=== PATIENT | male | born 1950 | race Caucasian/White ===

== ENCOUNTER → 2020-03-24 19:02 | Outpatient (CLI) | payer MEDICARE, SELFPAY ==
[2020-03-24 20:48] LABS: Alanine Aminotransferase 25 U/L (12-78); Albumin Level 4.1 g/dl (3.5-5.0); Albumin/Globulin Ratio 1.4 (1.1-1.8); Alkaline Phosphatase 131 U/L (38-126); Aspartate Amino Transferase 28 U/L (17-59); Basophils # 0.1 K/mm3 (0-0.2); Basophils % 0.9 % (0.1-2.0); Bilirubin,Total 0.5 mg/dl (0.2-1.3); Blood Urea Nitrogen 14 mg/dl (9-20); Calcium 11.6 mg/dl (8.4-10.2); Carbon Dioxide 31 mmol/L (22.0-30.0); Chloride 100 mmol/L (98-107); Chol/HDL Ratio 5.1 (1-3.5); Cholesterol 195 mg/dl (140-200); Eosinophils # 0.3 K/mm3 (0.0-0.4); Eosinophils % 5.2 % (0.1-12.0); Estimated Glomerular Filt Rate 134 ml/min (>60); GFR (African American) 162 ML/MIN (>60); Globulin 2.9 g/dL (1.3-3.2); Glucose 114 mg/dl (74-100); HDL Cholesterol 38 mg/dl (40-60); Lymphocytes % 19.6 % (10-50); Mean Corpuscular HGB Conc 31.3 g/dL (31.8-35.4); Mean Corpuscular Hemoglobin 30.6 pg (27.0-31.2); Mean Corpuscular Volume 97.8 fl (80-94); Mean Platelet Volume 10.1 fl (7.4-10.4); Monocytes # 0.5 K/mm3 (0.1-1.0); Monocytes % 9.9 % (1.7-9.3); Neutrophils # 3.2 K/mm3 (1.8-7.8); Neutrophils % 64.3 % (37.0-80.0); Platelet Count 103 K/mm3 (142-424); Red Blood Count 6.56 M/mm3 (4.60-6.20); Red Cell Distribution Width 14.8 % (11.5-17.5); Sodium 139 mmol/L (136-145); Triglycerides 117 mg/dl (30-150); VLDL Cholesterol 23 mg/dL (0-40)
[2020-03-24 20:59] LABS: Direct LDL Cholesterol 136.62 mg/dL (100-129)
[2020-03-24 21:30] LABS: Hemoglobin A1C 7.2 % (4.0-6.0)
[2020-03-24 21:32] LABS: Hematocrit 64.1 % (42.0-52.0)
== END ==
PROVIDERS: Visit Provider Family Medicine
DX: E11.9 Type 2 diabetes mellitus without complications (principal); R80.9 Proteinuria, unspecified; Z79.84 Long term (current) use of oral hypoglycemic drugs
CPT/HCPCS: 80053; 80061; 83036; 85025

== ENCOUNTER → 2021-03-08 13:36 | Outpatient (CLI) | payer BC, MEDICARE, SELFPAY ==
[2021-03-08 14:23] LABS: Hemoglobin A1C 9.4 % (4.0-6.0)
== END ==
PROVIDERS: Visit Provider Family Medicine
DX: E11.9 Type 2 diabetes mellitus without complications (principal); Z79.84 Long term (current) use of oral hypoglycemic drugs
CPT/HCPCS: 83036

== ENCOUNTER → 2022-01-08 09:36 | Outpatient (CLI) | payer BC, SELFPAY | PROVIDERS: PCP Family Medicine; Visit Provider Family Medicine | DX: E11.9 Type 2 diabetes mellitus without complications (principal); Z79.4 Long term (current) use of insulin | CPT/HCPCS: 83036 ==

== ENCOUNTER → 2022-07-19 23:52 | Outpatient (CLI) | payer BC, SELFPAY ==
[2022-07-19 18:25] LABS: Basophils # 0.1 K/mm3 (0-0.2); Eosinophils # 0.2 K/mm3 (0.0-0.4); Eosinophils % 3.1 % (0.1-12.0); Hematocrit 45.7 % (42.0-52.0); Hemoglobin 14.7 g/dL (14.1-18.0); Lymphocytes # 1.1 K/mm3 (0.7-4.5); Lymphocytes % 13.9 % (10-50); Mean Corpuscular HGB Conc 32.2 g/dL (31.8-35.4); Mean Corpuscular Volume 93.3 fl (80-94); Mean Platelet Volume 9.5 fl (7.4-10.4); Monocytes # 0.6 K/mm3 (0.1-1.0); Monocytes % 7.5 % (1.7-9.3); Neutrophils # 5.7 K/mm3 (1.8-7.8); Neutrophils % 74.5 % (37.0-80.0); Platelet Count 201 K/mm3 (142-424); Red Blood Count 4.89 M/mm3 (4.60-6.20); Red Cell Distribution Width 15.2 % (11.5-17.5); White Blood Count 7.6 K/mm3 (4.8-10.8)
[2022-07-19 18:53] LABS: Alanine Aminotransferase 19 U/L (12-78); Albumin Level 4.1 g/dl (3.5-5.0); Albumin/Globulin Ratio 1.6 (1.1-1.8); Alkaline Phosphatase 103 U/L (38-126); Aspartate Amino Transferase 25 U/L (17-59); Bilirubin,Total 0.6 mg/dl (0.2-1.3); Blood Urea Nitrogen 18 mg/dl (9-20); Calcium 10.7 mg/dl (8.4-10.2); Carbon Dioxide 33 mmol/L (22.0-30.0); Chloride 103 mmol/L (98-107); Chol/HDL Ratio 3.9 (1-3.5); Cholesterol 163 mg/dl (140-200); Estimated Glomerular Filt Rate 111 ml/min (>60); GFR (African American) 135 ML/MIN (>60); Globulin 2.5 g/dL (1.3-3.2); Glucose 162 mg/dl (74-100); HDL Cholesterol 42 mg/dl (40-60); Sodium 135 mmol/L (136-145); Total Protein,Serum 6.6 g/dl (6.3-8.2); Triglycerides 164 mg/dl (30-150); VLDL Cholesterol 33 mg/dL (0-40)
[2022-07-19 19:04] LABS: Direct LDL Cholesterol 97.78 mg/dL (100-129)
[2022-07-19 19:09] LABS: 25-OH Vitamin D, Total 19.9 ng/mL (30-100)
[2022-07-19 20:18] LABS: Anion Gap 4.1 mEq/L (5-15); Potassium 5.1 mmoL/L (3.5-5.1)
[2022-07-19 20:19] LABS: Hemoglobin A1C 6.7 % (4.0-6.0)
== END ==
PROVIDERS: PCP Family Medicine; Visit Provider Family Medicine
DX: E11.9 Type 2 diabetes mellitus without complications (principal); E55.9 Vitamin D deficiency, unspecified; E09.9 Drug or chemical induced diabetes mellitus without complications; Z79.84 Long term (current) use of oral hypoglycemic drugs
CPT/HCPCS: 80053; 80061; 82306; 83036; 84443; 85025; G0103

== ENCOUNTER → 2022-10-06 23:14 | Outpatient (CLI) | payer OTHER, BC, SELFPAY ==
[2022-10-06 18:11] LABS: Basophils # 0.1 K/mm3 (0-0.2); Basophils % 0.6 % (0.1-2.0); Eosinophils # 0.3 K/mm3 (0.0-0.4); Eosinophils % 3.5 % (0.1-12.0); Hematocrit 46.8 % (42.0-52.0); Hemoglobin 14.5 g/dL (14.1-18.0); Lymphocytes % 12.6 % (10-50); Mean Corpuscular HGB Conc 30.9 g/dL (31.8-35.4); Mean Corpuscular Hemoglobin 30.6 pg (27.0-31.2); Mean Platelet Volume 9.5 fl (7.4-10.4); Monocytes # 0.6 K/mm3 (0.1-1.0); Monocytes % 7.7 % (1.7-9.3); Neutrophils # 6.1 K/mm3 (1.8-7.8); Neutrophils % 75.6 % (37.0-80.0); Platelet Count 224 K/mm3 (142-424); Red Blood Count 4.73 M/mm3 (4.60-6.20); Red Cell Distribution Width 14.9 % (11.5-17.5); White Blood Count 8.1 K/mm3 (4.8-10.8)
[2022-10-06 18:25] LABS: Alanine Aminotransferase 19 U/L (12-78); Albumin Level 3.8 g/dl (3.5-5.0); Albumin/Globulin Ratio 1.5 (1.1-1.8); Alkaline Phosphatase 104 U/L (38-126); Anion Gap 15.9 mEq/L (5-15); Aspartate Amino Transferase 25 U/L (17-59); Bilirubin,Total 0.4 mg/dl (0.2-1.3); Blood Urea Nitrogen 21 mg/dl (9-20); Calcium 11.1 mg/dl (8.4-10.2); Carbon Dioxide 33 mmol/L (22.0-30.0); Chloride 94 mmol/L (98-107); Chol/HDL Ratio 4.7 (1-3.5); Cholesterol 151 mg/dl (140-200); Estimated Glomerular Filt Rate 95 ml/min (>60); GFR (African American) 115 ML/MIN (>60); Globulin 2.5 g/dL (1.3-3.2); Glucose 156 mg/dl (74-100); HDL Cholesterol 32 mg/dl (40-60); Potassium 5.9 mmoL/L (3.5-5.1); Sodium 137 mmol/L (136-145); Total Protein,Serum 6.3 g/dl (6.3-8.2); Triglycerides 179 mg/dl (30-150); VLDL Cholesterol 36 mg/dL (0-40)
[2022-10-06 18:36] LABS: Direct LDL Cholesterol 97.27 mg/dL (100-129); Hemoglobin A1C 6.5 % (4.0-6.0)
== END ==
PROVIDERS: PCP Family Medicine; Visit Provider Family Medicine
DX: C34.90 Malignant neoplasm of unspecified part of unspecified bronchus or lung (principal); E11.9 Type 2 diabetes mellitus without complications; Z79.4 Long term (current) use of insulin
CPT/HCPCS: 80053; 80061; 83036; 85025

== ENCOUNTER → 2022-10-12 10:01 | Outpatient (CLI) | payer BC, SELFPAY ==
--- NOTE | 2022-10-12 10:12 | ECG_ITS ---
APPROVED REPORT Exam: Resting ECG HR:81 bpm ECG Measurements Heart Rate 81 AXES WA 146 P 68 QRSd 151 QRS -63 QT 398 T 44 QTc 435 Conclusion SINUS RHYTHM POSSIBLE LEFT ATRIAL ENLARGEMENT [-0.1mV P-WAVE IN V1/V2] INDETERMINATE AXIS RIGHT BUNDLE BRANCH BLOCK [120+ ms QRS DURATION, UPRIGHT V1, 40+ ms S IN I/aVL/V4/V5/V6] POSSIBLE SEPTAL MYOCARDIAL INFARCTION , PROBABLY OLD [30 ms Q WAVE IN V1/V2] ABNORMAL ECG UNCONFIRMED REPORT Electronically signed by : Sonny Carmona MD 10/12/2022 17:34:14
== END ==
PROVIDERS: PCP Family Medicine; Visit Provider Surgery
DX: R22.31 Localized swelling, mass and lump, right upper limb (principal); Z01.810 Encounter for preprocedural cardiovascular examination
CPT/HCPCS: 93005

== ENCOUNTER → 2022-11-10 07:00 | Day surgery (SDC) | payer BC, SELFPAY ==
[2022-11-09 14:00] VITALS: BMI 25.0
--- NOTE | 2022-11-10 08:13 | ECG_ITS ---
APPROVED REPORT Exam: Resting ECG HR:115 bpm ECG Measurements Heart Rate 115 AXES QRSd 149 QRS -89 QT 358 T 34 QTc 426 Conclusion ATRIAL FIBRILLATION WITH RAPID VENTRICULAR RESPONSE LEFT AXIS DEVIATION [QRS AXIS < -30] RIGHT BUNDLE BRANCH BLOCK [120+ ms QRS DURATION, UPRIGHT V1, 40+ ms S IN I/aVL/V4/V5/V6] ABNORMAL ECG UNCONFIRMED REPORT Electronically signed by : Sonny Carmona MD 11/10/2022 22:20:55
--- NOTE | 2022-11-10 08:37 | SUR.PREOP ---
Repeat EKG this morning per anesthesia request. Changes noted per Evelina Mills ROPE WALKER since last EKG in September.Currently in A-Fib with RVR. ROPE WALKER discussed with Dr. King. Procedure to be cancelled today with a cardiology consult. TC to Dr. Dhaval benson, wants pt to be seen at [facility] cardiology. TC to Dr. Cooper office and instructed to send pt directly to office for evaluation. Updated pt and verbalized agreement to plan.
--- NOTE | 2022-11-10 08:49 | SUR.PREOP ---
Escorted pt and to Dr. Cooper's office.
== END ==
PROVIDERS: PCP Family Medicine; Visit Provider Surgery
PROC: (CPT 11404; principal; 2022-11-10 09:00)
DX: Z53.09 Procedure and treatment not carried out because of other contraindication (principal); I48.91 Unspecified atrial fibrillation; M79.89 Other specified soft tissue disorders
CPT/HCPCS: 11404; 93005

== ENCOUNTER → 2022-11-10 09:36 | Outpatient (CLI) | payer BC, MEDICARE, SELFPAY | PROVIDERS: PCP Family Medicine; Visit Provider Nurse Practitioner Family | DX: I48.0 Paroxysmal atrial fibrillation (principal); R42 Dizziness and giddiness; I25.10 Atherosclerotic heart disease of native coronary artery without angina pectoris; E11.9 Type 2 diabetes mellitus without complications; K21.9 Gastro-esophageal reflux disease without esophagitis; Z72.0 Tobacco use; Z95.5 Presence of coronary angioplasty implant and graft; Z79.4 Long term (current) use of insulin | CPT/HCPCS: 93270 ==

== ENCOUNTER 2022-11-23 15:38 | Inpatient (IN) | payer BC, MEDICARE, SELFPAY ==
[2022-11-23] VITALS (16 sets, daily range): BP systolic 82–156; BP diastolic 40–97; PULSE 76–123; RESP 15–20; TEMP 37.1; O2SAT 90–98; BMI 24.1; BMI 24.3
--- NOTE | 2022-11-23 13:48 | CA_ITS ---
APPROVED REPORT EXAM: Comprehensive 2D, Doppler, and color-flow Echocardiogram Stone Polisher Machine: Yeimy Loyola CRT Ht: 5 ft 7 in Wt: 150lbs BSA: 1.79 BP: 116/78 mmHg Indications: SOB, AFIB Atria No thrombus is visualized in the appendage. Conclusion No thrombus noted in the YOLETTE. Electronically signed by : Denis Cooper MD 11/25/2022 09:48:53
--- NOTE | 2022-11-23 14:03 | ECG_ITS ---
APPROVED REPORT Exam: Resting ECG HR:104 bpm ECG Measurements Heart Rate 104 AXES QRSd 174 QRS -82 QT 399 T -12 QTc 459 Conclusion ATRIAL FLUTTER/TACHYCARDIA WITH RAPID VENTRICULAR RESPONSE INDETERMINATE AXIS RIGHT BUNDLE BRANCH BLOCK [120+ ms QRS DURATION, UPRIGHT V1, 40+ ms S IN I/aVL/V4/V5/V6] LEFT ANTERIOR FASCICULAR BLOCK [QRS AXIS <= -45, QR IN I, RS IN II] MODERATE T-WAVE ABNORMALITY, CONSIDER INFERIOR ISCHEMIA [-0.1+ mV T-WAVE IN II/aVF] ABNORMAL ECG UNCONFIRMED REPORT Electronically signed by : Sonny Carmona MD 11/24/2022 21:36:34
--- NOTE | 2022-11-23 14:58 | ECG_ITS ---
APPROVED REPORT Exam: Resting ECG HR:130 bpm ECG Measurements Heart Rate 130 AXES QRSd 174 QRS -82 QT 341 T 61 QTc 418 Conclusion ATRIAL FLUTTER/TACHYCARDIA WITH RAPID VENTRICULAR RESPONSE LEFT AXIS DEVIATION [QRS AXIS < -30] RIGHT BUNDLE BRANCH BLOCK [120+ ms QRS DURATION, UPRIGHT V1, 40+ ms S IN I/aVL/V4/V5/V6] ABNORMAL ECG UNCONFIRMED REPORT Electronically signed by : Sonny Carmona MD 11/24/2022 21:36:20
--- NOTE | 2022-11-23 15:20 | EXP.ANES.CKL ---
[facility] Disclaimer: The information contained in this section may have been updated after the patient was seen, as this information can be updated by other users. Medical History Atrial fibrillation Diabetes mellitus, type 2 History of esophageal cancer History of heart attack History of left heart catheterization Hyperlipidemia Hypertension Lung cancer PAF (paroxysmal atrial fibrillation) Surgical History History of insertion of tunneled central venous catheter (CVC) with port Family History Other No significant family history Social History (Updated 11/23/22 @ 14:07 by Soraida Grossman RN) Smoking Status: Current some day smoker tobacco type: cigarettes alcohol intake: never substance use type: denies use current occupational status: retired Travel in the last 8 weeks: Inside the [place] household members: spouse housing: house [facility] Anesthesia Checklist Patient Identification Patient Identification: Arm Band Structural Data Admitted From: Direct Admit Planned Operative Procedure/s: NINFA, Cardioversion Consent for Planned Operative Procedure(s) Verified: Yes Verified Documents: Surgical Consent and History and Physical NPO Status Verified Time NPO: 00:00 Additional verifications Patient : No Anesthesia Reactions: No Hx Blood Transfusions: No Blood Transfusion Reaction: No Cephalosporin Allergy: No Previous Colonoscopy: Yes Airway Assessment C-Spine Mobility Assessed: Yes TMJ Mobility Assessed: Yes Dentition: Edentulous Neurological Assessment Level of Consciousness: Awake, Alert, Appropriate and Follows Commands Hx Seizures: No Numbness or tingling in extremities: No Anesthesia Plan ASA Class: III Anesthesia Type: MAC
--- NOTE | 2022-11-23 15:50 | PC.NURSE ---
arrived to floor from laborer cook house at 15:45 by horacio
[2022-11-23 16:51] LABS: Coronavirus 19, PCR Not Detected (NotDetected); Influenza A, PCR Not Detected (NotDetected); Influenza B, PCR Not Detected (NotDetected)
--- NOTE | 2022-11-23 17:06 | PC.NURSE ---
[address] Rivera via phone that pt was on unit.
--- NOTE | 2022-11-23 18:06 | EXP.HP ---
History of Present Illness *Admission Date: 11/23/22 *Reason for visit:: atrial fibrillation with RVR *History of present illness: Mr. Kraft is a 72 year old male with a past medical history of atrial fibrillation, type 2 diabetes mellitus, hypertension, hyperlipidemia, cad s/p RADHA placed 3 years ago and a history of lung and esophageal cancer. The patient was seen in Cardiology clinic and was noted to be in atrial fibrillation/flutter with rapid ventricular rate. The patient was cardioverted into normal sinus rhythm but flipped back into atrial fibrillation/flutter. He was started on an amiodarone drip. The patient denies having had any chest pain, shortness of breath, cough, or fever. He feels like he has been his normal self. [facility] Disclaimer: The information contained in this section may have been updated after the patient was seen, as this information can be updated by other users. Medical History (Updated 11/23/22 @ 18:31 by David Rivera MD) Atrial fibrillation COPD (chronic obstructive pulmonary disease) Diabetes mellitus, type 2 History of esophageal cancer History of heart attack History of left heart catheterization Hyperlipidemia Hypertension Lung cancer PAF (paroxysmal atrial fibrillation) Surgical History History of insertion of tunneled central venous catheter (CVC) with port Family History Other No significant family history Social History (Updated 11/23/22 @ 16:54 by Kinza Benedict RN) Smoking Status: Current some day smoker tobacco type: cigarettes alcohol intake: never substance use type: denies use current occupational status: retired Travel in the last 8 weeks: Inside the [place] household members: spouse housing: house Review of Systems Review of Systems Review of systems:: pertinent systems reviewed and negative unless documented below Meds Home Medications and Allergies Home Medications Medication Instructions Recorded Confirmed Type aspirin 81 mg tablet,delayed 81 mg PO DAILY Blood thinner 05/22/20 11/23/22 History release atorvastatin 20 mg tablet (Lipitor) 20 mg PO DAILY Cholesterol 11/09/22 11/23/22 History cholecalciferol (vitamin D3) 50 50 mcg PO DAILY Supplement 11/09/22 11/23/22 History mcg (2,000 unit) capsule (Vitamin D3) flash glucose scanning reader 11/09/22 11/23/22 History (FreeStyle Stephanie 2 [place]) flash glucose sensor (FreeStyle 11/09/22 11/23/22 History Stephanie 2 Sensor kit) insulin glargine 100 unit/mL (3 15 unit SQ HS Diabetes 11/09/22 11/23/22 History mL) subcutaneous pen (Lantus Solostar U-100 Insulin) lisinopril 2.5 mg tablet 2.5 mg PO DAILY Hypertension 11/09/22 11/23/22 History metformin 500 mg tablet 500 mg PO BID Diabetes 11/09/22 11/23/22 History varenicline 1 mg tablet (Chantix) 1 mg PO BID smoking 11/09/22 11/23/22 History amiodarone 200 mg tablet 200 mg PO BID blood pressure #60 11/17/22 11/23/22 Rx tabs omeprazole 20 mg capsule,delayed 20 mg PO BID gerd 11/23/22 11/23/22 History release rivaroxaban 20 mg tablet (Xarelto) 20 mg PO DAILY afib 11/23/22 11/23/22 History New Prescriptions to Start Prescriptions: Allergies Allergy/AdvReac Type Severity Reaction Status Date / Time morphine Allergy Unknown Verified 11/23/22 14:10 metoprolol AdvReac Severe Uncoded 11/23/22 10:04 Exam Data for Last 24 hours Vital signs and Labs for Last 24 Hours: Pulse Resp BP Pulse Ox O2 Del Method O2 Flow Rate 111 H 18 133/96 H 90 L Room Air 4 11/23/22 17:00 11/23/22 17:00 11/23/22 17:00 11/23/22 17:00 11/23/22 17:00 11/23/22 15:20 Laboratory Results - last 24 hr 11/23/22 16:40: SARS-CoV-2 (PCR) Not detected, Influenza A Untype (PCR) Not detected, Influenza Type B (PCR) Not detected I & O for Last 24 hours: Intake & Output 11/20/22 11/21/22 11/22/22 11/23/22 2
--- NOTE | 2022-11-23 18:14 | ECG_ITS ---
APPROVED REPORT Exam: Resting ECG HR:106 bpm ECG Measurements Heart Rate 106 AXES QRSd 174 QRS -84 QT 322 T 58 QTc 384 Conclusion ATRIAL FIBRILLATION WITH RAPID VENTRICULAR RESPONSE WITH ABERRANT CONDUCTION OR VENTRICULAR PREMATURE COMPLEXES INDETERMINATE AXIS RIGHT BUNDLE BRANCH BLOCK [120+ ms QRS DURATION, UPRIGHT V1, 40+ ms S IN I/aVL/V4/V5/V6] ABNORMAL ECG UNCONFIRMED REPORT Electronically signed by : Sonny Carmona MD 11/24/2022 21:35:43
--- NOTE | 2022-11-23 18:14 | PC.NURSE ---
[address] Rivera face to face. requested md address pt home meds, including home xarelto. requested ekg to confirm pt rhythm r/t tachycardic rate and unable to determine. notified that pt has no labs ordered at this time nor since arrival. ok to obtain ekg per Dr Rivera. other orders to be addressed by
[2022-11-23 19:32] LABS: Basophils % 0.3 % (0.1-2.0); Eosinophils # 0.2 K/mm3 (0.0-0.4); Eosinophils % 2.2 % (0.1-12.0); Hematocrit 43.3 % (42.0-52.0); Hemoglobin 13.7 g/dL (14.1-18.0); Lymphocytes # 1.2 K/mm3 (0.7-4.5); Lymphocytes % 13.1 % (10-50); Mean Corpuscular HGB Conc 31.6 g/dL (31.8-35.4); Mean Corpuscular Hemoglobin 29.2 pg (27.0-31.2); Mean Corpuscular Volume 92.6 fl (80-94); Mean Platelet Volume 8.4 fl (7.4-10.4); Monocytes # 0.8 K/mm3 (0.1-1.0); Monocytes % 9.1 % (1.7-9.3); Neutrophils # 6.7 K/mm3 (1.8-7.8); Neutrophils % 75.2 % (37.0-80.0); Platelet Count 222 K/mm3 (142-424); Red Blood Count 4.68 M/mm3 (4.60-6.20); Red Cell Distribution Width 14.6 % (11.5-17.5); White Blood Count 8.9 K/mm3 (4.8-10.8)
[2022-11-23 19:47] LABS: Magnesium 1.3 mg/dl (1.6-2.3)
[2022-11-23 19:49] LABS: Alanine Aminotransferase 24 U/L (12-78); Albumin Level 3.7 g/dl (3.5-5.0); Albumin/Globulin Ratio 1.4 (1.1-1.8); Alkaline Phosphatase 85 U/L (38-126); Anion Gap 10.7 mEq/L (5-15); Aspartate Amino Transferase 26 U/L (17-59); Bilirubin,Total 0.3 mg/dl (0.2-1.3); Blood Urea Nitrogen 16 mg/dl (9-20); Calcium 10.6 mg/dl (8.4-10.2); Carbon Dioxide 30 mmol/L (22.0-30.0); Chloride 98 mmol/L (98-107); Creatinine Clearance Estimated 68 mL/min (50-200); Estimated Glomerular Filt Rate 95 ml/min (>60); GFR (African American) 115 ML/MIN (>60); Globulin 2.7 g/dL (1.3-3.2); Glucose 170 mg/dl (74-100); Potassium 4.7 mmoL/L (3.5-5.1); Sodium 134 mmol/L (136-145); Total Protein,Serum 6.4 g/dl (6.3-8.2)
--- NOTE | 2022-11-23 21:45 | PC.NURSE ---
Amio gtt turned down to 0.5mg/min at this time.
--- NOTE | 2022-11-23 22:47 | PC.NURSE ---
Notified Abundio MONTES that pt heart rhythm had changed and pt HR was sustaining in 70s. IMPREGNATION OPERATOR stated to get an EKG. EKG confirmed rhythm NSR/BBB. IMPREGNATION OPERATOR states to continue amio drip at this time.
--- NOTE | 2022-11-23 22:54 | ECG_ITS ---
APPROVED REPORT Exam: Resting ECG HR:77 bpm ECG Measurements Heart Rate 77 AXES HI 152 P 71 QRSd 173 QRS -35 QT 437 T 65 QTc 469 Conclusion SINUS RHYTHM Left atrial abnormality LAD RIGHT BUNDLE BRANCH BLOCK ABNORMAL ECG UNCONFIRMED REPORT Electronically signed by : Sonny Carmona MD 11/28/2022 07:18:42
[2022-11-24] VITALS (16 sets, daily range): BP systolic 137–175; BP diastolic 84–97; PULSE 70–91; RESP 15–22; TEMP 36.8–37.1; O2SAT 90–94; BMI 24.0
--- NOTE | 2022-11-24 05:44 | PC.NURSE ---
Amio gtt continues at 0.5mg/min. Pt has remained in a BBB with HR 70-80 since converting at 2245. Pt ambulating to BR with standby assist. Pt has had 950ml urine output this shift. Call light within reach.
[2022-11-24 07:08] LABS: Anion Gap 9.5 mEq/L (5-15); Blood Urea Nitrogen 13 mg/dl (9-20); Calcium 10.4 mg/dl (8.4-10.2); Carbon Dioxide 31 mmol/L (22.0-30.0); Chloride 99 mmol/L (98-107); Creatinine Clearance Estimated 67 mL/min (50-200); Estimated Glomerular Filt Rate 111 ml/min (>60); GFR (African American) 135 ML/MIN (>60); Glucose 93 mg/dl (74-100); Potassium 4.5 mmoL/L (3.5-5.1); Sodium 135 mmol/L (136-145)
[2022-11-24 07:24] LABS: Magnesium 2.1 mg/dl (1.6-2.3)
[2022-11-24 07:28] LABS: White Blood Count 9.3 K/mm3 (4.8-10.8)
[2022-11-24 07:29] LABS: Hematocrit 49.2 % (42.0-52.0); Mean Corpuscular HGB Conc 31.6 g/dL (31.8-35.4); Mean Corpuscular Hemoglobin 29.3 pg (27.0-31.2); Mean Corpuscular Volume 92.8 fl (80-94); Mean Platelet Volume 8.4 fl (7.4-10.4); Neutrophils % 76.1 % (37.0-80.0); Platelet Count 200 K/mm3 (142-424); Red Cell Distribution Width 14.6 % (11.5-17.5)
[2022-11-24 07:30] LABS: Basophils % 0.5 % (0.1-2.0); Eosinophils # 0.2 K/mm3 (0.0-0.4); Eosinophils % 2.3 % (0.1-12.0); Lymphocytes # 1.2 K/mm3 (0.7-4.5); Lymphocytes % 13.3 % (10-50); Monocytes # 0.7 K/mm3 (0.1-1.0); Monocytes % 7.8 % (1.7-9.3); Neutrophils # 7.1 K/mm3 (1.8-7.8)
[2022-11-24 07:47] LABS: Hemoglobin 15.5 g/dL (14.1-18.0)
--- NOTE | 2022-11-24 09:31 | PC.NURSE ---
COURTESY TECH NOTE; ROUNDED ON PT 0825, PT DENIED NEED FOR ASSISTANCE WITH RESTROOM, AND NEED TO REPOSITION IN BED. CALL LIGHT WITHIN REACH, NO FURTHER REQUESTS AT THIS TIME DOTTIE FRIED
--- NOTE | 2022-11-24 10:11 | HMH.PHAINT1 ---
Pharmacy Intervention Comments: Patient's home medications verified with external pharmacy -Hakan Sexton, Pharm Student
--- NOTE | 2022-11-24 10:56 | EXP.CARD.PN ---
Subjective Subjective Date: 11/24/22 Time: 08:30 Principal diagnosis: PAF/flutter rvr Interval history: Patient underwent cardioversion yesterday converting to NSR briefly before going back to afib rvr. Patient was started on Amio drip and converted back to NSR. Drip is now off and remains NSR. Morning labs reviewed. Exam Data for Last 24 hours Vital signs and Labs for Last 24 Hours: Temp Pulse Resp BP Pulse Ox O2 Del Method O2 Flow Rate 98.5 F 77 18 137/89 92 L Room Air 1 11/24/22 07:43 11/24/22 10:00 11/24/22 10:00 11/24/22 10:00 11/24/22 10:00 11/24/22 10:00 11/23/22 22:00 Laboratory Results - last 24 hr 11/23/22 16:40: SARS-CoV-2 (PCR) Not detected, Influenza A Untype (PCR) Not detected, Influenza Type B (PCR) Not detected 11/23/22 19:16: WBC 8.9, RBC 4.68, Hgb 13.7 L, Hct 43.3, MCV 92.6, MCH 29.2, MCHC 31.6 L, RDW 14.6, Plt Count 222, MPV 8.4, Neut % (Auto) 75.2, Lymph % (Auto) 13.1, [place] % (Auto) 9.1, Eos % (Auto) 2.2, Baso % (Auto) 0.3, Neut # (Auto) 6.7, Lymph # (Auto) 1.2, [place] # (Auto) 0.8, Eos # (Auto) 0.2, Baso # (Auto) 0.0, Sodium 134 L, Potassium 4.7, Chloride 98, Carbon Dioxide 30, Anion Gap 10.7, BUN 16, Creatinine 0.80, Estimated Creat Clear 68, Estimated GFR 95, Est GFR ( Amer) 115, Glucose 170 H, Hemoglobin A1c 7.0 H, Calcium 10.6 H, Magnesium 1.3 L, Total Bilirubin 0.3, AST 26, ALT 24, Alkaline Phosphatase 85, Total Protein 6.4, Albumin 3.7, Globulin 2.7, Albumin/Globulin Ratio 1.4 11/24/22 05:22: WBC 9.3, RBC 5.30, Hgb 15.5 D, Hct 49.2, MCV 92.8, MCH 29.3, MCHC 31.6 L, RDW 14.6, Plt Count 200, MPV 8.4, Neut % (Auto) 76.1, Lymph % (Auto) 13.3, [place] % (Auto) 7.8, Eos % (Auto) 2.3, Baso % (Auto) 0.5, Neut # (Auto) 7.1, Lymph # (Auto) 1.2, [place] # (Auto) 0.7, Eos # (Auto) 0.2, Baso # (Auto) 0.0, Sodium 135 L, Potassium 4.5, Chloride 99, Carbon Dioxide 31 H, Anion Gap 9.5, BUN 13, Creatinine 0.70, Estimated Creat Clear 67, Estimated GFR 111, Est GFR ( Amer) 135, Glucose 93 D, Calcium 10.4 H, Magnesium 2.1 D I & O for Last 24 hours: Intake & Output 11/21/22 11/22/22 11/23/22 11/24/22 23:59 23:59 23:59 23:59 Intake Total 240 / 340 100 / 100 Output Total 1550 / 1550 1000 / 1000 Balance -1310 / -1210 -900 / -900 Weight 155 lb 9 oz 153 lb 4 oz Constitutional Constitutional: no acute distress *Routine Respiratory Exam Respiratory: Present CTA bilaterally and symmetric chest movement *Routine Cardiovascular Exam Cardiovascular: Present RRR, Normal S1 and Normal S2 *Routine Abdominal Exam Abdominal: Present soft and normoactive bowel sounds; Absent tenderness *Routine Extremities Exam Extremities: Present full ROM and normal capillary refill; Absent edema *Routine Skin Exam Skin: Present intact, dry and warm Detailed Neck Exam: Thyroids Thyroid: Absent bruit Progress Note: A&P Assessment and plan (1) Atrial fibrillation with rapid ventricular response: Status: Acute (2) Diabetes: Status: Acute (3) Hypertension: Status: Acute (4) Hyperlipidemia: Status: Acute (5) CAD (coronary atherosclerotic disease): Status: Acute (6) Heart failure with reduced ejection fraction: Status: Acute Assessment and Plan Assessment and Plan for All Diagnoses:: PAF/flutter RVR Jared Vasc greater than 4 -S/p NINFA/Cardioversion 11/23/2022- Briefly converted to NSR before returning to afib rvr. Was started on amio drip and converted back to NSR. Patient was evaluated per Dr. Cooper this morning, he would like to send patient home on amiodarone 200 mg twice daily and add bisoprolol 5 mg p.o. in the evening as well as digoxin 0.125 mcg on Monday and Monday. Patient has historically not tolerated beta-blockers however Dr. Cooper wants to try him on bisoprolol in the evening to see if he can tolerate without nausea. -Preliminary echo report shows an estimated EF of 40%. Official echo is pending -If patient does not maintain normal sinus rhythm will cons
[2022-11-24 12:35] LABS: POC Glucose,Bedside 91 (70-110)
--- NOTE | 2022-11-24 13:13 | EXP.DC.SUM ---
General Admission date:: 11/23/22 Discharge date: 11/24/22 HPI HPI HPI: Mr. Kraft is a 72 year old male with a past medical history of atrial fibrillation, type 2 diabetes mellitus, hypertension, hyperlipidemia, cad s/p RADHA placed 3 years ago and a history of lung and esophageal cancer. The patient was seen in Cardiology clinic and was noted to be in atrial fibrillation/flutter with rapid ventricular rate. The patient was cardioverted into normal sinus rhythm but flipped back into atrial fibrillation/flutter. He was started on an amiodarone drip. The patient denies having had any chest pain, shortness of breath, cough, or fever. He feels like he has been his normal self. Hospital Course Hospital Course Hospital Course: The patient converted into NSR on the evening of admission. Magnesium level was found to be low at 1.4; he was given 4g mg sulfate and by the following morning mg was 2.1. He was discharged on 5 more days of magnesium supplementation. Preliminary echocardiogram revealed EF of 40%. Cardiology started the patient on many new medications including digoxin, bisoprolol, jardiance, aldactone. Exam Data for Last 24 hours Vital signs and Labs for Last 24 Hours: Temp Pulse Resp BP Pulse Ox O2 Del Method O2 Flow Rate 98.4 F 88 18 137/89 92 L Room Air 1 11/24/22 11:10 11/24/22 12:07 11/24/22 10:00 11/24/22 10:00 11/24/22 10:00 11/24/22 11:00 11/23/22 22:00 Laboratory Results - last 24 hr 11/23/22 16:40: SARS-CoV-2 (PCR) Not detected, Influenza A Untype (PCR) Not detected, Influenza Type B (PCR) Not detected 11/23/22 19:16: WBC 8.9, RBC 4.68, Hgb 13.7 L, Hct 43.3, MCV 92.6, MCH 29.2, MCHC 31.6 L, RDW 14.6, Plt Count 222, MPV 8.4, Neut % (Auto) 75.2, Lymph % (Auto) 13.1, [place] % (Auto) 9.1, Eos % (Auto) 2.2, Baso % (Auto) 0.3, Neut # (Auto) 6.7, Lymph # (Auto) 1.2, [place] # (Auto) 0.8, Eos # (Auto) 0.2, Baso # (Auto) 0.0, Sodium 134 L, Potassium 4.7, Chloride 98, Carbon Dioxide 30, Anion Gap 10.7, BUN 16, Creatinine 0.80, Estimated Creat Clear 68, Estimated GFR 95, Est GFR ( Amer) 115, Glucose 170 H, Hemoglobin A1c 7.0 H, Calcium 10.6 H, Magnesium 1.3 L, Total Bilirubin 0.3, AST 26, ALT 24, Alkaline Phosphatase 85, Total Protein 6.4, Albumin 3.7, Globulin 2.7, Albumin/Globulin Ratio 1.4 11/24/22 05:22: WBC 9.3, RBC 5.30, Hgb 15.5 D, Hct 49.2, MCV 92.8, MCH 29.3, MCHC 31.6 L, RDW 14.6, Plt Count 200, MPV 8.4, Neut % (Auto) 76.1, Lymph % (Auto) 13.3, [place] % (Auto) 7.8, Eos % (Auto) 2.3, Baso % (Auto) 0.5, Neut # (Auto) 7.1, Lymph # (Auto) 1.2, [place] # (Auto) 0.7, Eos # (Auto) 0.2, Baso # (Auto) 0.0, Sodium 135 L, Potassium 4.5, Chloride 99, Carbon Dioxide 31 H, Anion Gap 9.5, BUN 13, Creatinine 0.70, Estimated Creat Clear 67, Estimated GFR 111, Est GFR ( Amer) 135, Glucose 93 D, Calcium 10.4 H, Magnesium 2.1 D 11/24/22 12:28: POC Glucose 91 I & O for Last 24 hours: Intake & Output 11/21/22 11/22/22 11/23/22 11/24/22 23:59 23:59 23:59 23:59 Intake Total 240 / 340 100 / 100 Output Total 1550 / 1550 1000 / 1000 Balance -1310 / -1210 -900 / -900 Weight 70.562 kg 69.513 kg Constitutional Constitutional: no acute distress *Routine HEENT Exam Head: Present normocephalic Eye: Present EOMI and PERRL ENT: Present mucous membranes moist *Routine Neck Exam Neck: Present supple; Absent lymphadenopathy *Routine Respiratory Exam Respiratory: Present CTA bilaterally *Routine Cardiovascular Exam Cardiovascular: Present RRR *Routine Abdominal Exam Abdominal: Present soft and normoactive bowel sounds; Absent tenderness *Routine Extremities Exam Extremities: Absent cyanosis, clubbing or edema *Routine Skin Exam Skin: Present warm; Absent rash *Routine Neurological Exam Neurological: Present alert and oriented X3 Results Data Completed and Pending Pending studies at discharge: echocardiogram Labs on day of discharge: Labs from last 24 hours 11/24/22 11/24/22 11/23/22 12:28 05:22 19:16
--- NOTE | 2022-11-24 13:35 | HMH.PHAINT1 ---
Pharmacy Intervention Comments: Patient's discharge medications discussed with patient and patient's : - Bisoprolol (Blood pressure, watch for increased fatigue) - Digoxin (Antiarrythmic, Dizziness) - Empagliflozin (Heart health, increased urination) - Magnesium Oxide (Supplement, Dizziness) - Spironolactone (Blood pressure/fluid, increased urination/fatigue) Patient discussed switch Jardiance to Empagliflozin due to insurance. -Hakan Sexton, Pharm Student
--- NOTE | 2022-11-28 14:42 | CARE MANAGER ---
Attempted to contact patient x2 related to hospital discharge at both numbers listed for patient. No VM option. MITRA Khan
== END 2022-11-24 15:55 | disposition home or self-care (01) | DRG 309 ==
LOC: 2ND 15:39
PROVIDERS: Internal Medicine; Admitting Provider Internal Medicine; PCP Family Medicine; Visit Provider Internal Medicine
DX: I48.92 Unspecified atrial flutter (principal); I50.20 Unspecified systolic (congestive) heart failure; J44.9 Chronic obstructive pulmonary disease, unspecified; E11.9 Type 2 diabetes mellitus without complications; E78.5 Hyperlipidemia, unspecified; I25.10 Atherosclerotic heart disease of native coronary artery without angina pectoris; Z85.118 Personal history of other malignant neoplasm of bronchus and lung; Z85.01 Personal history of malignant neoplasm of esophagus; I25.2 Old myocardial infarction; I48.0 Paroxysmal atrial fibrillation; Z79.4 Long term (current) use of insulin; I11.0 Hypertensive heart disease with heart failure
CPT/HCPCS: 36415; 80048; 80053; 82962; 83036; 83735; 85025; 87636; 93005; 93306; 93312; J0282; J1642; J3475; J7060

== ENCOUNTER → 2022-12-05 23:00 | Outpatient (CLI) | payer BC, MEDICARE, SELFPAY ==
[2022-12-05 18:42] LABS: Basophils % 0.4 % (0.1-2.0); Eosinophils # 0.2 K/mm3 (0.0-0.4); Eosinophils % 2.2 % (0.1-12.0); Hematocrit 49.2 % (42.0-52.0); Hemoglobin 15.1 g/dL (14.1-18.0); Lymphocytes # 1.1 K/mm3 (0.7-4.5); Lymphocytes % 11.4 % (10-50); Mean Corpuscular HGB Conc 30.8 g/dL (31.8-35.4); Mean Corpuscular Hemoglobin 29.2 pg (27.0-31.2); Mean Corpuscular Volume 94.7 fl (80-94); Mean Platelet Volume 10.2 fl (7.4-10.4); Monocytes # 0.9 K/mm3 (0.1-1.0); Monocytes % 9.2 % (1.7-9.3); Neutrophils # 7.3 K/mm3 (1.8-7.8); Neutrophils % 76.8 % (37.0-80.0); Platelet Count 227 K/mm3 (142-424); Red Blood Count 5.19 M/mm3 (4.60-6.20); Red Cell Distribution Width 14.8 % (11.5-17.5); White Blood Count 9.5 K/mm3 (4.8-10.8)
[2022-12-05 18:43] LABS: Alanine Aminotransferase 34 U/L (12-78); Albumin Level 4.2 g/dl (3.5-5.0); Albumin/Globulin Ratio 1.4 (1.1-1.8); Alkaline Phosphatase 117 U/L (38-126); Anion Gap 12.7 mEq/L (5-15); Aspartate Amino Transferase 43 U/L (17-59); Bilirubin,Total 0.3 mg/dl (0.2-1.3); Blood Urea Nitrogen 28 mg/dl (9-20); Calcium 11.2 mg/dl (8.4-10.2); Carbon Dioxide 31 mmol/L (22.0-30.0); Chloride 92 mmol/L (98-107); Estimated Glomerular Filt Rate 66 ml/min (>60); GFR (African American) 80 ML/MIN (>60); Glucose 115 mg/dl (74-100); Magnesium 2.4 mg/dl (1.6-2.3); Potassium 5.7 mmoL/L (3.5-5.1); Sodium 130 mmol/L (136-145); Total Protein,Serum 7.2 g/dl (6.3-8.2)
[2022-12-05 19:09] LABS: Thyroid Stimulating Hormone 1.61 uIU/mL (0.465-4.68)
[2022-12-05 22:57] LABS: Hemoglobin A1C 7.2 % (4.0-6.0)
== END ==
PROVIDERS: PCP Family Medicine; Visit Provider Family Medicine
DX: R25.1 Tremor, unspecified (principal)
CPT/HCPCS: 80053; 83036; 83735; 84443; 85025

== ENCOUNTER 2022-12-08 10:49 | Emergency (ER) | payer BC, SELFPAY ==
--- NOTE | 2022-12-08 10:49 | ECG_ITS ---
APPROVED REPORT Exam: Resting ECG HR:72 bpm ECG Measurements Heart Rate 72 AXES VT 152 P 71 QRSd 173 QRS -16 QT 440 T 52 QTc 465 Conclusion SINUS RHYTHM LEFT ATRIAL Abnormality INDETERMINATE AXIS RIGHT BUNDLE BRANCH BLOCK [120+ ms QRS DURATION, UPRIGHT V1, 40+ ms S IN I/aVL/V4/V5/V6] ABNORMAL ECG UNCONFIRMED REPORT Electronically signed by : Sonny Carmona MD 12/09/2022 16:18:13
[2022-12-08 10:53] VITALS: BP 118/77; PULSE 75; RESP 18; TEMP 36.6; O2SAT 96; BMI 23.1
--- NOTE | 2022-12-08 11:01 | XR_ITS ---
FINAL REPORT TECHNIQUE: Single view chest CLINICAL HISTORY: weakness FINDINGS: A single view of the chest was obtained. The heart and mediastinum are within normal limits. A right chest port is in place. There is a background of emphysematous change. The lungs are otherwise clear. There is no pneumothorax. Osseous structures are unremarkable. IMPRESSION: No acute cardiopulmonary process. Reviewed, Interpreted and Dictated by Evelina Rees MD Transcribed by Mildred Prather Authenticated and [facility]
--- NOTE | 2022-12-08 11:01 | CT_ITS ---
FINAL REPORT TECHNIQUE: Axial images were performed through the brain.This study was performed with techniques to keep radiation doses as low as reasonably achievable, (ALARA). Individualized dose reduction techniques using automated exposure control or adjustment of mA and/or kV according to the patient''s size were employed. CLINICAL HISTORY: weakness, presyncope with new tremor FINDINGS: There is moderate global atrophy. The ventricles are normal in size for the degree of atrophy. There is no extra-axial fluid or midline shift. There is no evidence of acute hemorrhage or mass. IMPRESSION: Atrophy. No acute intracranial process. Reviewed, Interpreted and Dictated by Evelina Rees MD Transcribed by Mildred Prather Authenticated and [facility]
--- NOTE | 2022-12-08 11:04 | HMH.EDGENADL ---
Discharge Plan Disposition Patient Disposition: Home, Self-Care Condition: Good Prescriptions Prescriptions: No Action aspirin 81 mg tablet,delayed release (DR/EC) 81 mg PO DAILY amiodarone 200 mg tablet 200 mg PO BID Qty: 60 5RF Xarelto 20 mg tablet 20 mg PO HS Rx Instructions: must administer with evening meal omeprazole 20 mg Capsule,Delayed Release(Dr/Ec) 20 mg PO BID magnesium oxide 400 mg magnesium capsule 800 mg PO DAILY Qty: 20 0RF spironolactone 25 mg Tablet 25 mg PO DAILY Qty: 30 1RF bisoprolol fumarate 5 mg Tablet 5 mg PO DAILY Qty: 30 1RF digoxin [Digox] 125 mcg (0.125 mg) Tablet 125 mcg PO MoWeFr Qty: 15 1RF Jardiance 10 mg Tablet 10 mg PO DAILY Qty: 30 1RF cholecalciferol (vitamin D3) [Vitamin D3] 50 mcg (2,000 unit) Capsule 50 mcg PO DAILY metformin 500 mg tablet 500 mg PO BID atorvastatin [Lipitor] 20 mg tablet 20 mg PO DAILY lisinopril 2.5 mg tablet 2.5 mg PO DAILY varenicline [Chantix] 1 mg tablet 1 mg PO BID insulin glargine [Lantus Solostar U-100 Insulin] 100 unit/mL (3 mL) insulin pen 25 unit SQ HS Rx Instructions: please very slowly increase nightly dose with goal of waking up with blood sugar in the 150 range (DME) FreeStyle Stephanie 2 Sensor Kit See Rx Instructions .Route Rx Instructions: As directed (DME) FreeStyle Stephanie 2 [place] Misc See Rx Instructions .Route Rx Instructions: As directed Activity Restrictions/Add. Instructions Additional Instructions/Restrictions: You were evaluated in the emergency department today. Please follow-up with your primary care provider over the next 72 hours for reassessment of your blood work. I also recommend close follow-up with your extension service agent. Return to the emergency department for any new or worsening symptoms. Clinical Impressions Clinical Impression: Dehydration, Chronic hyponatremia, Pre-syncope Instructions Patient Instructions: DI for Syncope in Adults (Fainting), DI for Dehydration -- Adult Discharge ED Provider: Adriana Simmons General Adult HPI General Chief complaint: Syncope Stated complaint: Shakiness Time Seen by Provider: 12/08/22 10:52 Mode of Arrival: Ambulatory Source of Information: Patient Limitations: No Limitations Description of Symptoms (Recalled from ER Triage Doc. by RN): Presents via POV d/t concerns of having an attack last night. Pt states he was ambulating to the kitchen where he had a sudden onset of shaking, near syncope, and left hand drawn up . Denies Sx at this time. Hx of A-fib, +Xalrelto. History of Present Illness HPI narrative: This patient is a 72-year-old male who has a history of atrial fibrillation managed on amiodarone, bisoprolol, Xarelto, and digoxin, insulin-dependent diabetes, hypertension, GERD, esophageal cancer, hyperlipidemia, and heart failure with reduced ejection fraction presenting to the emergency department for evaluation. He reports that he had a cardiology appointment this morning and was told that if he is going to miss it, then he should just go to the ER to be evaluated. His appointment was follow-up for atrial fibrillation. He denies any specific concerns or complaints at this time, but he notes that he had a presyncopal episode last night. He states that he was ambulating to the kitchen when he started shaking and fell like he was going to blackout. His left hand anay up and cramped up during this. This resolved spontaneously and he denies any true syncope. He denies any recent headache, vision changes, numbness, tingling, unilateral weakness, chest pain, shortness of breath, palpitations, abdominal pain, nausea, vomiting, change in bowel movements, rashes, swelling, or other concerns. I called and spoke with the cardiology office who stated that he had contacted them this morning and told them that he had a seizure. Given this, they instructed f
--- NOTE | 2022-12-08 11:04 | PC.NURSE ---
pt received a box of tissues
--- NOTE | 2022-12-08 11:05 | PC.NURSE ---
speaking with Annie Mcleod in cardiology.
[2022-12-08 11:14] LABS: Chloride 90 mmol/L (98-107); Sodium 127 mmol/L (136-145)
[2022-12-08 11:15] LABS: Basophils % 0.3 % (0.1-2.0); Eosinophils # 0.1 K/mm3 (0.0-0.4); Eosinophils % 1.2 % (0.1-12.0); Hematocrit 47.8 % (42.0-52.0); Hemoglobin 14.9 g/dL (14.1-18.0); Lymphocytes # 1.2 K/mm3 (0.7-4.5); Lymphocytes % 10.5 % (10-50); Mean Corpuscular HGB Conc 31.2 g/dL (31.8-35.4); Mean Corpuscular Hemoglobin 28.9 pg (27.0-31.2); Mean Corpuscular Volume 92.6 fl (80-94); Mean Platelet Volume 8.2 fl (7.4-10.4); Monocytes # 1.1 K/mm3 (0.1-1.0); Monocytes % 9.3 % (1.7-9.3); Neutrophils # 8.8 K/mm3 (1.8-7.8); Neutrophils % 78.6 % (37.0-80.0); Platelet Count 217 K/mm3 (142-424); Red Blood Count 5.16 M/mm3 (4.60-6.20); Red Cell Distribution Width 14.8 % (11.5-17.5); White Blood Count 11.2 K/mm3 (4.8-10.8)
[2022-12-08 11:17] LABS: Alanine Aminotransferase 57 U/L (12-78); Albumin Level 4.4 g/dl (3.5-5.0); Albumin/Globulin Ratio 1.3 (1.1-1.8); Alkaline Phosphatase 129 U/L (38-126); Aspartate Amino Transferase 50 U/L (17-59); Bilirubin,Total 0.6 mg/dl (0.2-1.3); Blood Urea Nitrogen 21 mg/dl (9-20); Calcium 11.3 mg/dl (8.4-10.2); Carbon Dioxide 31 mmol/L (22.0-30.0); Creatinine Clearance Estimated 64 mL/min (50-200); Estimated Glomerular Filt Rate 74 ml/min (>60); GFR (African American) 89 ML/MIN (>60); Globulin 3.3 g/dL (1.3-3.2); Glucose 102 mg/dl (74-100); Magnesium 2.1 mg/dl (1.6-2.3); Total Protein,Serum 7.7 g/dl (6.3-8.2)
[2022-12-08 11:25] LABS: NT Pro Brain Natriuretic Pep. 211 pg/mL (0-125)
--- NOTE | 2022-12-08 11:48 | PC.NURSE ---
Hourly rounding completed. 0/10 pain. Call light within reach. Oral fluids/pillow provided. Pt updated on plan of care. No further complaints.
--- NOTE | 2022-12-08 12:02 | PC.NURSE ---
ROUNDED ON PT NOTHING NEEDED AT THIS TIME, CALL LIGHT AT BS
[2022-12-08 12:15] VITALS: PULSE 70; RESP 18; O2SAT 98
[2022-12-08 12:31] VITALS: BP 141/78; PULSE 71; O2SAT 99
[2022-12-08 12:49] VITALS: BP 141/78; PULSE 73; RESP 18; TEMP 36.6; O2SAT 96
[2022-12-08 12:54] VITALS: BP 141/78; PULSE 73; RESP 18; TEMP 36.6; O2SAT 98
== END 2022-12-08 12:57 | disposition home or self-care (01) ==
PROVIDERS: Emergency Provider Emergency Medicine; PCP Family Medicine
DX: E86.0 Dehydration (principal); E87.1 Hypo-osmolality and hyponatremia; R55 Syncope and collapse; I48.0 Paroxysmal atrial fibrillation; E11.9 Type 2 diabetes mellitus without complications; I11.0 Hypertensive heart disease with heart failure; I50.20 Unspecified systolic (congestive) heart failure; J44.9 Chronic obstructive pulmonary disease, unspecified; F17.210 Nicotine dependence, cigarettes, uncomplicated
CPT/HCPCS: 70450; 71045; 80053; 83735; 83880; 85025; 93005; 96360; 99285

== ENCOUNTER 2023-01-10 17:35 | Observation (INO) | payer BC, SELFPAY ==
[2023-01-10] VITALS (10 sets, daily range): BP systolic 86–117; BP diastolic 51–66; PULSE 63–80; RESP 12–24; TEMP 36.4–36.6; O2SAT 92–98; BMI 22.2
--- NOTE | 2023-01-10 17:46 | XR_ITS ---
PROCEDURE INFORMATION: Exam: XR Chest Exam date and time: 01/10/2023 6:19 PM Age: 72 years old Clinical indication: Other: Weakness; Prior surgery; Surgery date: 6+ months; Surgery type: Port; Additional info: General weakness. HX of lung cancer TECHNIQUE: Imaging protocol: Radiologic exam of the chest. Views: 1 view. Total images: 2 COMPARISON: CR XR CHEST PORTABLE 12/08/2022 11:06 AM FINDINGS: Tubes, catheters and devices: Status post right IJ infusion port with catheter tip in lower SVC. EKG leads are present. Lungs: Lungs are emphysematous. Mild chronic coarsening of the bibasilar interstitial markings. No acute infiltrate, airspace consolidation or vascular congestion. Calcified granuloma right mid lung. Pleural spaces: Unremarkable. No pleural effusion. No pneumothorax. Heart/Mediastinum: Unremarkable. No cardiomegaly. No mediastinal widening or hilar enlargement. Vasculature: Atherosclerotic aortic arch. Bones/joints: Osseous demineralization. Moderate degenerative changes bilateral shoulders and AC joints. Partially visualized mild degenerative changes thoracic spine. IMPRESSION: 1. No radiographically acute cardiopulmonary process. 2. Stable chronic findings.
--- NOTE | 2023-01-10 17:46 | ECG_ITS ---
APPROVED REPORT Exam: Resting ECG HR:76 bpm ECG Measurements Heart Rate 76 AXES DE 162 P 63 QRSd 165 QRS -89 QT 446 T 44 QTc 476 Conclusion SINUS RHYTHM LEFT AXIS DEVIATION [QRS AXIS < -30] RIGHT BUNDLE BRANCH BLOCK [120+ ms QRS DURATION, UPRIGHT V1, 40+ ms S IN I/aVL/V4/V5/V6] POSSIBLE SEPTAL MYOCARDIAL INFARCTION , PROBABLY OLD [30 ms Q WAVE IN V1/V2] ABNORMAL ECG UNCONFIRMED REPORT Electronically signed by : Sonny Carmona MD 01/12/2023 18:45:39
--- NOTE | 2023-01-10 18:18 | CT_ITS ---
PROCEDURE INFORMATION: Exam: CT Thoracic Spine Without Contrast Exam date and time: 01/10/2023 7:51 PM Age: 72 years old Clinical indication: Injury or trauma; Fall; Blunt trauma (contusions or hematomas); Patient HX: Fell twice today; Additional info: Lung and esophageal cancer, weak ble TECHNIQUE: Imaging protocol: Computed tomography of the thoracic spine without contrast. Total images: 344 Radiation optimization: All CT scans at this facility use at least one of these dose optimization techniques: automated exposure control; mA and/or kV adjustment per patient size (includes targeted exams where dose is matched to clinical indication); or iterative reconstruction. REPORTING DATA: Count of CT and Cardiac NM exams in prior 12 months: This patient has received [address] and 0 known cardiac nuclear medicine studies in the 12 months prior to the current study. COMPARISON: CR XR CHEST PORTABLE 01/10/2023 6:19 PM FINDINGS: Bones/joints: Mild S-shaped thoracic scoliosis. Osseous demineralization. Vertebral body height and alignment is preserved. No acute fracture or traumatic subluxation. Moderate degenerative disc disease throughout the entire thoracic spine. Facet joints are appropriately aligned with mild degenerative spondylosis. Posterior elements are intact. No concerning bone lesions. Prominent disc osteophyte complex resulting in at least mild acquired spinal canal stenosis at T8-T9, and T10-T11. Costovertebral junctions are intact. Included posterior ribs are maintained. Soft tissues: No paraspinal soft tissue mass, fluid collection, or edema. IMPRESSION: 1. No acute thoracic fracture or traumatic subluxation. 2. No concerning bone lesions. 3. Moderate degenerative disc disease greatest at T8-T9 and T10-T11. 4. Multiple additional pertinent findings can be found on separate chest CT report.
--- NOTE | 2023-01-10 18:18 | CT_ITS ---
PROCEDURE INFORMATION: Exam: CT Lumbar Spine Without Contrast Exam date and time: 01/10/2023 7:54 PM Age: 72 years old Clinical indication: Injury or trauma; Fall; Blunt trauma (contusions or hematomas); Patient HX: Fell today; Additional info: Lung and esophageal cancer, weak ble TECHNIQUE: Imaging protocol: Computed tomography of the lumbar spine without contrast. Total images: 333 Radiation optimization: All CT scans at this facility use at least one of these dose optimization techniques: automated exposure control; mA and/or kV adjustment per patient size (includes targeted exams where dose is matched to clinical indication); or iterative reconstruction. REPORTING DATA: Count of CT and Cardiac NM exams in prior 12 months: This patient has received [address] and 0 known cardiac nuclear medicine studies in the 12 months prior to the current study. COMPARISON: CT THORACIC SPINE WO CON 01/10/2023 7:51 PM FINDINGS: Bones/joints: Five non rib-bearing lumbar vertebral segments. Vertebral body height and alignment is preserved. Facet joints are appropriately aligned with mild degenerate facet joint spondylosis greatest at L3 through S1. Posterior elements are intact. No concerning bone lesions. Moderate to severe degenerative disc disease L2 through S1. Minor retrolisthesis L5-S1. Prominent posterior projecting disc osteophyte complex at all levels from L2 through S1. Moderate acquired spinal canal stenosis greatest at L3-L4 and L4-L5. If further evaluation required suggest follow-up nonemergent MRI. Moderate degenerative changes bilateral SI joints. Soft tissues: No paraspinal soft tissue mass, edema, or fluid collections. IMPRESSION: 1. No acute lumbar fracture or traumatic subluxation. 2. No concerning bone lesions. 3. Moderate to severe degenerative disc disease affecting all levels from L2 through S1 with secondary moderate acquired spinal canal stenosis. 4. Multiple additional pertinent findings can be found on separate abdominal and pelvis CT report.
--- NOTE | 2023-01-10 18:18 | CT_ITS ---
PROCEDURE INFORMATION: Exam: CT Abdomen And Pelvis With Contrast Exam date and time: 01/10/2023 7:57 PM Age: 72 years old Clinical indication: Condition or disease; Cancer; Other: Lung and esophagus; Additional info: Lung and esophageal cancer, weak ble TECHNIQUE: Imaging protocol: Computed tomography of the abdomen and pelvis with contrast. Total images: 424 Radiation optimization: All CT scans at this facility use at least one of these dose optimization techniques: automated exposure control; mA and/or kV adjustment per patient size (includes targeted exams where dose is matched to clinical indication); or iterative reconstruction. Contrast material: ISOVUE; Contrast volume: 75 ml; Contrast route: IV; REPORTING DATA: Count of CT and Cardiac NM exams in prior 12 months: This patient has received [address] and 0 known cardiac nuclear medicine studies in the 12 months prior to the current study. COMPARISON: CT LUMBAR SPINE WO CON 01/10/2023 7:54 PM FINDINGS: Liver: Indeterminate 11 mm hepatic hypodensity, axial image 42. No additional liver lesions. Gallbladder and bile ducts: Cholelithiasis without secondary signs of acute cholecystitis. No bile duct dilatation. Pancreas: Atrophic pancreas. No acute pancreatitis. Spleen: Nonenlarged spleen with calcified granuloma. Adrenal glands: Significant masslike enlargement of the left adrenal gland most likely metastatic. Unremarkable right adrenal gland. Kidneys and ureters: Bilateral renal vascular calcifications favored over nephrolithiasis. No hydronephrosis or discrete renal mass. Minor bilateral perinephric fat stranding. Stomach and bowel: Stomach is mostly collapsed. Unremarkable duodenum. No ileus or bowel obstruction. Grossly unremarkable small bowel. Moderate gaseous distention of the colon. No acute colonic inflammatory process. Unremarkable rectum. Appendix: Normal appendix. Intraperitoneal space: Unremarkable. No free air. No significant fluid collection. Vasculature: Severely atherosclerotic abdominal aorta without aneurysm. Lymph nodes: Prominent retrocrural lymphadenopathy. Severe retroperitoneal lymphadenopathy. Additional mild periportal and gastrohepatic ligament adenopathy. Urinary bladder: Circumferential bladder wall thickening. Reproductive: Severe prostatomegaly measuring 6.7 cm with very heterogeneous enhancement and dystrophic calcifications. Bones/joints: No acute osseous abnormality. No concerning bone lesions. Moderate to severe degenerative changes lumbar spine including retrolisthesis at L5-S1. Moderate degenerative changes bilateral hips including chondrocalcinosis. Moderate degenerative change of bilateral SI joints. Chronic osteitis of the pubic symphysis. Soft tissues: Unremarkable. IMPRESSION: 1. Severe retroperitoneal lymphadenopathy, most likely metastatic. 2. Additional mild periportal, retrocrural, and gastrohepatic ligament adenopathy, also likely metastatic. 3. Considerable masslike enlargement of the left adrenal gland, most likely metastatic. 4. Indeterminate 12 mm left hepatic hypodensity, likely metastatic. 5. Cholelithiasis without acute cholecystitis 6. Severe atherosclerotic vascular disease. 7. Severe prostatomegaly. 8. Bladder wall thickening from incomplete distention, chronic outlet obstruction or cystitis. 9. Additional chronic and incidental findings.
--- NOTE | 2023-01-10 18:18 | CT_ITS ---
PROCEDURE INFORMATION: Exam: CT Head Without Contrast Exam date and time: 01/10/2023 7:46 PM Age: 72 years old Clinical indication: Injury or trauma; Fall; Blunt trauma (contusions or hematomas); Consciousness not specified; Patient HX: Bruising around left eye; Additional info: Ble weakness, cancer TECHNIQUE: Imaging protocol: Computed tomography of the head without contrast. Radiation optimization: All CT scans at this facility use at least one of these dose optimization techniques: automated exposure control; mA and/or kV adjustment per patient size (includes targeted exams where dose is matched to clinical indication); or iterative reconstruction. REPORTING DATA: Count of CT and Cardiac NM exams in prior 12 months: This patient has received [address] and 0 known cardiac nuclear medicine studies in the 12 months prior to the current study. COMPARISON: CT HEAD/BRAIN WO CON 12/08/2022 11:09 AM FINDINGS: Brain: Mild diffuse cerebral atrophy is consistent with this patient's age. The visualized basilar cisterns are patent. The cortical/white matter interfaces are preserved throughout the brain. There is no evidence of mass, mass effect or midline shift. There is no evidence of acute hemorrhage within the brain parenchyma or the subarachnoid space. The craniocervical junction is within range of normal. There is moderate stable heterogeneity and patchy areas of bilateral decreased attenuation of the white matter consistent with chronic white matter ischemic change. Cerebral ventricles: The ventricular system is normal in size and distribution. Paranasal sinuses: There is a 16 mm mucous retention cyst or polyp involving the anterior left maxillary sinus. The visualized portions of the sinuses are otherwise clear. Mastoid air cells: The mastoid sinuses are normal. Orbital cavities: The orbits are normal. Bones/joints: There is no evidence of acute fracture. Soft tissues: No soft tissue swelling is identified. IMPRESSION: 1. No acute posttraumatic intracranial abnormality. 2. Chronic and stable findings. 3. Stable left mucous retention cyst or polyp.
--- NOTE | 2023-01-10 18:21 | HMH.EDGENADL ---
Discharge Plan Disposition Patient Disposition: Admitted Chief Complaint: Weakness Clinical Impressions Clinical Impression: Metastatic disease, Bilateral leg weakness Discharge ED Provider: Bo Paredes General Adult HPI General Chief complaint: Weakness Stated complaint: fall Time Seen by Provider: 01/10/23 17:56 History of Present Illness HPI narrative: Patient is a 72-year-old male with past medical history of diabetes, hypertension, hyperlipidemia, coronary artery disease status post stenting, lung esophageal cancer status post radiation therapy, right upper chest port placement, pending immunotherapy who presents emergency department for evaluation of weakness. Patient states that he has subacute weakness in his bilateral lower extremities however over the last day he has had multiple ground-level falls due to his legs giving out . When asked if it is because he has difficulty feeling his feet or if it is entire legs he states both my entire legs . Patient denies urinary or bowel incontinence. No other acute complaints at this time. Per chart review patient was admitted with atrial fibrillation with rapid ventricular response and was noted to have multiple low electrolytes previously. Baseline ejection fraction is 40%. Related Data Home Medications Medication Instructions Recorded Confirmed atorvastatin 20 mg tablet (Lipitor) 20 mg PO DAILY Cholesterol 11/09/22 01/04/23 cholecalciferol (vitamin D3) 50 50 mcg PO DAILY Supplement 11/09/22 01/04/23 mcg (2,000 unit) capsule (Vitamin D3) flash glucose scanning reader 11/09/22 01/04/23 (FreeStyle Stephanie 2 [place]) flash glucose sensor (FreeStyle 11/09/22 01/04/23 Stephanie 2 Sensor kit) insulin glargine 100 unit/mL (3 25 unit SQ HS Diabetes 11/09/22 01/04/23 mL) subcutaneous pen (Lantus Solostar U-100 Insulin) metformin 500 mg tablet 500 mg PO BID Diabetes 11/09/22 01/04/23 varenicline 1 mg tablet (Chantix) 1 mg PO BID smoking 11/09/22 01/04/23 omeprazole 20 mg capsule,delayed 20 mg PO BID Acid Reflux 11/23/22 01/04/23 release rivaroxaban 20 mg tablet (Xarelto) 20 mg PO HS Anti Platelet/ Atrial 11/23/22 01/04/23 Fib Previous Rx's Medication Instructions Recorded digoxin 125 mcg (0.125 mg) tablet 125 mcg PO MoWeFr #15 tabs 11/24/22 (Digox) empagliflozin 10 mg tablet 10 mg PO DAILY #30 tabs 11/24/22 (Jardiance) magnesium oxide 800 mg PO DAILY #20 caps 11/24/22 amiodarone 200 mg tablet 200 mg PO DAILY blood pressure #30 12/12/22 tabs bisoprolol fumarate 5 mg tablet 5 mg PO DAILY #30 tabs 12/12/22 Allergies Allergy/AdvReac Type Severity Reaction Status Date / Time morphine Allergy Unknown Verified 01/04/23 14:34 metoprolol AdvReac Severe Uncoded 01/04/23 14:34 [facility] Disclaimer: The information contained in this section may have been updated after the patient was seen, as this information can be updated by other users. Medical History (Updated 01/10/23 @ 23:20 by Bo Paredes MD) Atrial fibrillation Claudication COPD (chronic obstructive pulmonary disease) Decreased pedal pulses Diabetes mellitus, type 2 Dyspnea History of esophageal cancer History of heart attack History of left heart catheterization Hyperlipidemia Hypertension Lung cancer PAF (paroxysmal atrial fibrillation) Surgical History History of insertion of tunneled central venous catheter (CVC) with port Family History Other No significant family history Social History Smoking Status: Current every day smoker tobacco type: cigarettes alcohol intake: never substance use type: denies use current occupational status: retired Travel in the last 8 weeks: Inside the [place] household members: spouse housing: house ROS Obtained: Yes Systems reviewed as appropriate &
[2023-01-10 18:53] LABS: Basophils % 0.3 % (0.1-2.0); Eosinophils # 0.1 K/mm3 (0.0-0.4); Eosinophils % 0.5 % (0.1-12.0); Hematocrit 43.6 % (42.0-52.0); Hemoglobin 14.1 g/dL (14.1-18.0); Lymphocytes # 0.8 K/mm3 (0.7-4.5); Lymphocytes % 7.6 % (10-50); Mean Corpuscular HGB Conc 32.4 g/dL (31.8-35.4); Mean Corpuscular Hemoglobin 29.8 pg (27.0-31.2); Mean Corpuscular Volume 92.1 fl (80-94); Mean Platelet Volume 8.6 fl (7.4-10.4); Monocytes # 0.9 K/mm3 (0.1-1.0); Monocytes % 8.4 % (1.7-9.3); Neutrophils # 9.1 K/mm3 (1.8-7.8); Neutrophils % 83.4 % (37.0-80.0); Platelet Count 235 K/mm3 (142-424); Red Blood Count 4.73 M/mm3 (4.60-6.20); Red Cell Distribution Width 15.2 % (11.5-17.5); White Blood Count 10.9 K/mm3 (4.8-10.8)
--- NOTE | 2023-01-10 19:06 | XR_ITS ---
PROCEDURE INFORMATION: Exam: XR Left Forearm Exam date and time: 01/10/2023 7:19 PM Age: 72 years old Clinical indication: Injury or trauma; Fall; Blunt trauma (contusions or hematomas); Arm, lower; Left TECHNIQUE: Imaging protocol: Radiologic exam of the left forearm. Views: 2 views. Total images: 2 COMPARISON: No relevant prior studies available. FINDINGS: Bones/joints: Osseous demineralization. No acute fracture or joint dislocation. Mild narrowing radiocarpal joint. No concerning bone lesions. Mild degenerative changes of the elbow including spurring of the coronoid process and lateral humeral epicondyle. Soft tissues: Benign soft tissue calcifications. Distal forearm soft tissue swelling. IMPRESSION: 1. No acute osseous abnormality. 2. Degenerative changes and osseous demineralization. 3. Distal forearm soft tissue swelling.
--- NOTE | 2023-01-10 19:06 | XR_ITS ---
PROCEDURE INFORMATION: Exam: XR Left Wrist Exam date and time: 01/10/2023 7:19 PM Age: 72 years old Clinical indication: Injury or trauma; Fall; Blunt trauma (contusions or hematomas); Wrist; Left TECHNIQUE: Imaging protocol: Radiologic exam of the left wrist. Views: 3 or more views. Total images: 3 COMPARISON: No relevant prior studies available. FINDINGS: Bones/joints: Osseous demineralization. No acute fracture or joint dislocation. Carpal alignment is maintained. Mild narrowing radiocarpal joint. Subtle joint space chondrocalcinosis. Moderate degenerative change 1st carpometacarpal joint. Mild degenerative change STT joint. No concerning bone lesions. Moderate degenerative change 1st MCP joint. Soft tissues: Mild soft tissue swelling. IMPRESSION: 1. No acute osseous abnormality. 2. Osseous demineralization and degenerative changes as described. 3. Soft tissue swelling.
[2023-01-10 19:09] LABS: Alanine Aminotransferase 81 U/L (12-78); Albumin Level 3.4 g/dl (3.5-5.0); Albumin/Globulin Ratio 1.2 (1.1-1.8); Alkaline Phosphatase 130 U/L (38-126); Anion Gap 11.3 mEq/L (5-15); Aspartate Amino Transferase 47 U/L (17-59); Bilirubin,Total 0.3 mg/dl (0.2-1.3); Blood Urea Nitrogen 21 mg/dl (9-20); Calcium 10.4 mg/dl (8.4-10.2); Carbon Dioxide 30 mmol/L (22.0-30.0); Chloride 95 mmol/L (98-107); Creatinine Clearance Estimated 62 mL/min (50-200); Estimated Glomerular Filt Rate 74 ml/min (>60); GFR (African American) 89 ML/MIN (>60); Globulin 2.8 g/dL (1.3-3.2); Glucose 121 mg/dl (74-100); Magnesium 2.5 mg/dl (1.6-2.3); Potassium 4.3 mmoL/L (3.5-5.1); Sodium 132 mmol/L (136-145); Total Protein,Serum 6.2 g/dl (6.3-8.2)
[2023-01-10 19:24] LABS: Troponin I < 0.01 ng/ml (0.00-0.034)
--- NOTE | 2023-01-10 19:55 | CT_ITS ---
PROCEDURE INFORMATION: Exam: CTA Chest With Contrast Exam date and time: 01/10/2023 7:57 PM Age: 72 years old Clinical indication: Condition or disease; Lung condition and disease; Cancer of the lung; Bilateral; Unspecified; Additional info: Lung and esophageal cancer, weak ble TECHNIQUE: Imaging protocol: Computed tomographic angiography of the chest with contrast. Exam focused on the arteries. 3D rendering (Not supervised by radiologist): MIP and/or 3D reconstructed images were created by the technologist. Total images: 297 Radiation optimization: All CT scans at this facility use at least one of these dose optimization techniques: automated exposure control; mA and/or kV adjustment per patient size (includes targeted exams where dose is matched to clinical indication); or iterative reconstruction. Contrast material: ISOVUE 370; Contrast volume: 75 ml; Contrast route: INTRAVENOUS (IV); REPORTING DATA: Count of CT and Cardiac NM exams in prior 12 months: This patient has received [address] and 0 known cardiac nuclear medicine studies in the 12 months prior to the current study. COMPARISON: CR XR CHEST PORTABLE 01/10/2023 6:19 PM FINDINGS: Tubes, catheters and devices: Status post right IJ infusion port with catheter tip in lower SVC near the cavoatrial junction. Pulmonary arteries: Adequate contrast opacification of the pulmonary arteries. No acute pulmonary emboli. Aorta: Severely atherosclerotic thoracic aorta without aneurysm or dissection. Thyroid: Mildly enlarged thyroid gland without concerning nodule or mass. Lungs: Transverse tracheal narrowing compatible with COPD. Layering secretions/mucus within the right main bronchus. Diffuse bronchial wall thickening. Mild upper lobe predominant centrilobular emphysema. Minor architectural distortion medial left upper lung. Minor bibasilar dependent atelectasis. 2 cm infiltrating soft tissue density central right middle lobe with adjacent parenchymal distortion and interstitial coarsening. 6 mm noncalcified right upper lung nodule, axial image 45. 6 mm noncalcified left lower lobe nodule, axial image 41. Calcified granuloma superior segment right lower lobe. Additional 3 and 4 mm noncalcified left upper lobe nodules. Pleural spaces: Unremarkable. No pneumothorax. No pleural effusion. Heart: Normal heart size. Localized anterior pericardial thickening versus trace fluid. Trace fluid in the superior pericardial recess. Coronary arteries: Severe coronary artery calcifications. Mediastinal space: Nonspecific distal esophageal wall thickening. Lymph nodes: Calcified mediastinal and right hilar lymph nodes compatible with remote granulomatous disease. No mediastinal lymphadenopathy. Nonspecific soft tissue fullness right hilum. Retrocrural lymphadenopathy. Bones/joints: Osseous demineralization. Moderate degenerative changes thoracic spine. No acute osseous abnormality. Mild thoracic S-shaped scoliosis. No discrete rib fractures. Degenerative changes bilateral glenohumeral joints with prominent subchondral cyst formation in the bilateral glenoid process. Soft tissues: Unremarkable. IMPRESSION: 1. No acute pulmonary emboli. 2. Severely atherosclerotic thoracic aorta without aneurysm or dissection. 3. 2 cm airspace consolidation with infiltrating margins in the central right middle lobe may reflect the patient's primary carcinoma. Please correlate with prior imaging if available. 4. Contiguous right hilar soft tissue fullness without measurable adenopathy. 5. Bilateral pulmonary nodules measuring up to 6 mm. Fleischner Society follow up recommendations for incidental nodules are not indicated. Follow up per the patient's medical condition. 6. Underlying mild
--- NOTE | 2023-01-10 20:40 | PC.NURSE ---
ROUNDED ON PATIENT; NOTHING NEEDED AT THIS TIME. CALL [facility] WITHIN REACH OF PATIENT
--- NOTE | 2023-01-10 20:58 | PC.NURSE ---
checked on pt stated he was hurting told charge nurse, at bs
--- NOTE | 2023-01-10 20:59 | PC.NURSE ---
rounded on pt no needs,call light at bs
[2023-01-10 21:38] LABS: Troponin I < 0.01 ng/ml (0.00-0.034)
--- NOTE | 2023-01-10 22:12 | PC.NURSE ---
[employer] NOTIFIED OF ADMISSION
--- NOTE | 2023-01-10 22:15 | PC.NURSE ---
Admissions notified for admit
--- NOTE | 2023-01-10 22:41 | PC.NURSE ---
Marie Marquez attempted to call report on pt. unable to reach at this time.
--- NOTE | 2023-01-10 22:41 | EXP.HP ---
History of Present Illness *Admission Date: 01/10/23 *Reason for visit:: weakness *History of present illness: This is a 72-year-old male with past medical history of IDDM, hypertension, Heart failure, Afib, HLD, CAD status post stenting, lung/ esophageal cancer status post radiation therapy, tobacco abuser, right upper chest port placement, who presented emergency department for evaluation of weakness, dizziness and multiples falls at home. Patient stated that his weakness has been progressively increased to bilateral lower extremities however over the last day he has had multiple ground-level falls due to his legs giving out . When asked if it is because he has difficulty feeling his feet or if it is entire legs he states both my entire legs . Patient denies urinary or bowel incontinence. No other acute complaints at this time. admitted for further management. [facility] Disclaimer: The information contained in this section may have been updated after the patient was seen, as this information can be updated by other users. Medical History Atrial fibrillation Claudication COPD (chronic obstructive pulmonary disease) Decreased pedal pulses Diabetes mellitus, type 2 Dyspnea History of esophageal cancer History of heart attack History of left heart catheterization Hyperlipidemia Hypertension Lung cancer PAF (paroxysmal atrial fibrillation) Surgical History History of insertion of tunneled central venous catheter (CVC) with port Family History Other No significant family history Social History (Updated 01/11/23 @ 00:27 by Jenifer Bowers RN) Smoking Status: Current every day smoker tobacco type: cigarettes alcohol intake: never substance use type: denies use current occupational status: retired Travel in the last 8 weeks: Inside the [place] household members: spouse housing: house Review of Systems Review of Systems Review of systems:: pertinent systems reviewed and negative unless documented below Meds Home Medications and Allergies Home Medications Medication Instructions Recorded Confirmed Type atorvastatin 20 mg tablet (Lipitor) 20 mg PO DAILY Cholesterol 11/09/22 01/11/23 History cholecalciferol (vitamin D3) 50 50 mcg PO DAILY Supplement 11/09/22 01/11/23 History mcg (2,000 unit) capsule (Vitamin D3) flash glucose scanning reader 11/09/22 01/11/23 History (FreeStyle Stephanie 2 [place]) flash glucose sensor (FreeStyle 11/09/22 01/11/23 History Stephanie 2 Sensor kit) insulin glargine 100 unit/mL (3 25 unit SQ HS Diabetes 11/09/22 01/11/23 History mL) subcutaneous pen (Lantus Solostar U-100 Insulin) metformin 500 mg tablet 500 mg PO BID Diabetes 11/09/22 01/11/23 History varenicline 1 mg tablet (Chantix) 1 mg PO BID smoking cessation 11/09/22 01/11/23 History omeprazole 20 mg capsule,delayed 20 mg PO BID Acid Reflux 11/23/22 01/11/23 History release rivaroxaban 20 mg tablet (Xarelto) 20 mg PO QPMWITHMEAL Blood 11/23/22 01/11/23 History Thinner/ Atrial Fib amiodarone 200 mg tablet 200 mg PO DAILY Heart Rate 01/11/23 01/11/23 History aspirin 81 mg tablet,delayed 81 mg PO DAILY Heart Health 01/11/23 01/11/23 History release bisoprolol fumarate 5 mg tablet 5 mg PO DAILY heart rate 01/11/23 01/11/23 History digoxin 125 mcg (0.125 mg) tablet 125 mcg PO MoWeFr Heart Rate 01/11/23 01/11/23 History (Digox) empagliflozin 10 mg tablet 10 mg PO DAILY Diabetes 01/11/23 01/11/23 History (Jardiance) magnesium oxide 800 mg PO BID Supplement 01/11/23 01/11/23 History spironolactone 25 mg tablet 25 mg PO DAILY Fluid 01/11/23 01/11/23 History New Prescriptions to Start Prescriptions: Allergies Allergy/AdvReac Type Severity Reaction Status Date / Time morphine Allergy Unknown Verified 01/04
--- NOTE | 2023-01-10 23:00 | PC.NURSE ---
LEFT ELBOW SKIN TEAR HAS BEEN CLEANED AND WRAPPED.
--- NOTE | 2023-01-10 23:17 | PC.NURSE ---
PT ARRIVED TO FLOOR AT THIS TIME
[2023-01-11] VITALS (11 sets, daily range): BP systolic 93–135; BP diastolic 47–70; PULSE 50–88; RESP 18–19; TEMP 36.3–37; O2SAT 91–97; BMI 22.6; BMI 19.6
[2023-01-11 01:01] LABS: Troponin I < 0.01 ng/ml (0.00-0.034)
[2023-01-11 05:32] LABS: POC Glucose,Bedside 120 (70-110)
--- NOTE | 2023-01-11 06:19 | PC.NURSE ---
Pt refuses to take Duoneb breathing treatment, states the one he took earlier made him dizzy and sick to his stomach. Will continue to monitor.
[2023-01-11 07:06] LABS: Basophils % 0.3 % (0.1-2.0); Eosinophils # 0.1 K/mm3 (0.0-0.4); Hematocrit 39.2 % (42.0-52.0); Mean Platelet Volume 8.5 fl (7.4-10.4); Monocytes # 0.9 K/mm3 (0.1-1.0)
[2023-01-11 07:12] LABS: Alanine Aminotransferase 64 U/L (12-78); Albumin Level 3.1 g/dl (3.5-5.0); Albumin/Globulin Ratio 1.2 (1.1-1.8); Alkaline Phosphatase 116 U/L (38-126); Anion Gap 9.6 mEq/L (5-15); Aspartate Amino Transferase 37 U/L (17-59); Bilirubin,Total 0.2 mg/dl (0.2-1.3); Blood Urea Nitrogen 22 mg/dl (9-20); Carbon Dioxide 32 mmol/L (22.0-30.0); Chloride 95 mmol/L (98-107); Creatinine Clearance Estimated 63 mL/min (50-200); Estimated Glomerular Filt Rate 83 ml/min (>60); GFR (African American) 101 ML/MIN (>60); Globulin 2.6 g/dL (1.3-3.2); Glucose 113 mg/dl (74-100); Potassium 4.6 mmoL/L (3.5-5.1); Sodium 132 mmol/L (136-145); Total Protein,Serum 5.7 g/dl (6.3-8.2)
[2023-01-11 07:15] LABS: Eosinophils % 1.1 % (0.1-12.0); Lymphocytes % 10.2 % (10-50); Mean Corpuscular HGB Conc 32.3 g/dL (31.8-35.4); Monocytes % 9.9 % (1.7-9.3); Neutrophils # 7.5 K/mm3 (1.8-7.8); Neutrophils % 78.4 % (37.0-80.0); Platelet Count 209 K/mm3 (142-424); Red Blood Count 4.22 M/mm3 (4.60-6.20); Red Cell Distribution Width 15.2 % (11.5-17.5); White Blood Count 9.5 K/mm3 (4.8-10.8)
[2023-01-11 07:31] LABS: Hemoglobin 12.6 g/dL (14.1-18.0)
--- NOTE | 2023-01-11 08:07 | HMH.PHAINT1 ---
Pharmacy Intervention Comments: MEDICATION RECONCILIATION COMPLETED ON PATIENT USING EXTERNAL FILL HISTORY FROM PHARMACY AND LIST FROM CARDIOLOGY OFFICE. -JESSICA SALAZAR, TIFFANIED
--- NOTE | 2023-01-11 08:12 | EXP.PN ---
Subjective *Date: 01/11/23 *Time: 12:23 Interval history: The patient was able to ambulate with physical therapy but still feels very weak. He denies chest pain or shortness of breath. He has had poor appetite and has lost approximately 10 to 15 pounds over the past year. This morning he ate nearly all of his breakfast. He states that he's had intermittent blurry vision and lightheadedness. Exam Data for Last 24 hours Vital signs and Labs for Last 24 Hours: Temp Pulse Resp BP Pulse Ox O2 Del Method O2 Flow Rate 98.1 F 79 18 135/68 92 L Nasal Cannula 2 01/11/23 08:00 01/11/23 08:00 01/11/23 08:00 01/11/23 08:00 01/11/23 08:00 01/11/23 08:00 01/11/23 08:00 FiO2 28 01/11/23 00:21 Laboratory Results - last 24 hr 01/10/23 18:01: Sodium 132 L, Potassium 4.3, Chloride 95 L, Carbon Dioxide 30, Anion Gap 11.3, BUN 21 H, Creatinine 1.00, Estimated Creat Clear 62, Estimated GFR 74, Est GFR ( Amer) 89, Glucose 121 H, Calcium 10.4 H, Magnesium 2.5 H, Total Bilirubin 0.3, AST 47, ALT 81 H, Alkaline Phosphatase 130 H, Troponin I < 0.01, Total Protein 6.2 L, Albumin 3.4 L, Globulin 2.8, Albumin/Globulin Ratio 1.2 01/10/23 18:40: WBC 10.9 H, RBC 4.73, Hgb 14.1, Hct 43.6, MCV 92.1, MCH 29.8, MCHC 32.4, RDW 15.2, Plt Count 235, MPV 8.6, Neut % (Auto) 83.4 H, Lymph % (Auto) 7.6 L, [place] % (Auto) 8.4, Eos % (Auto) 0.5, Baso % (Auto) 0.3, Neut # (Auto) 9.1 H, Lymph # (Auto) 0.8, [place] # (Auto) 0.9, Eos # (Auto) 0.1, Baso # (Auto) 0.0 01/10/23 20:33: Troponin I < 0.01 01/11/23 00:32: Troponin I < 0.01 01/11/23 05:26: POC Glucose 120 H 01/11/23 06:00: WBC 9.5, RBC 4.22 L, Hgb 12.6 L D, Hct 39.2 L, MCV 93.0, MCH 30.0, MCHC 32.3, RDW 15.2, Plt Count 209, MPV 8.5, Neut % (Auto) 78.4, Lymph % (Auto) 10.2, [place] % (Auto) 9.9 H, Eos % (Auto) 1.1, Baso % (Auto) 0.3, Neut # (Auto) 7.5, Lymph # (Auto) 1.0, [place] # (Auto) 0.9, Eos # (Auto) 0.1, Baso # (Auto) 0.0, Sodium 132 L, Potassium 4.6, Chloride 95 L, Carbon Dioxide 32 H, Anion Gap 9.6, BUN 22 H, Creatinine 0.90, Estimated Creat Clear 63, Estimated GFR 83, Est GFR ( Amer) 101, Glucose 113 H, Calcium 10.0, Total Bilirubin 0.2, AST 37, ALT 64, Alkaline Phosphatase 116, Total Protein 5.7 L, Albumin 3.1 L, Globulin 2.6, Albumin/Globulin Ratio 1.2 I & O for Last 24 hours: Intake & Output 01/08/23 01/09/23 01/10/23 01/11/23 23:59 23:59 23:59 23:59 Output Total 200 / 200 Balance -200 / -200 Weight 64.41 kg 65.544 kg Constitutional Constitutional: no acute distress *Routine HEENT Exam Head: Present normocephalic Eye: Present EOMI and PERRL ENT: Present mucous membranes moist *Routine Neck Exam Neck: Present supple; Absent lymphadenopathy *Routine Respiratory Exam Respiratory: Present CTA bilaterally *Routine Cardiovascular Exam Cardiovascular: Present RRR *Routine Abdominal Exam Abdominal: Present soft and normoactive bowel sounds; Absent tenderness *Routine Extremities Exam Extremities: Absent cyanosis, clubbing or edema *Routine Skin Exam Skin: Present warm; Absent rash *Routine Neurological Exam Neurological: Present alert and oriented X3 Assessment and Plan *Assessment and plan (1) Generalized weakness: Status: Acute Category: Medical Code(s): R53.1 - Weakness (2) Multiple falls: Status: Acute Category: Medical Code(s): R29.6 - Repeated falls (3) Chronic hyponatremia: Status: Acute Category: Medical Code(s): E87.1 - Hypo-osmolality and hyponatremia (4) Bilateral leg weakness: Status: Acute Category: Medical Code(s): R29.898 - Other symptoms and signs involving the musculoskeletal system (5) Neoplasm of lung, malignant: Status: Acute Qualifiers: Laterality: unspecified laterality Lung location: unspecified part of lung Qualified Code(s): C34.90 - Malignant neoplasm of unspecified part of unspecified bronchus or lung Category: Medical Code(s)
--- NOTE | 2023-01-11 08:13 | PC.NURSE ---
Addendum entered by Kelly Junior RD, LD 01/11/23 09:36: based on intake listed below he consumed 408kcal and 24.5gm protein for breakfast. nutritional needs are 1800kcal and 85gm protein to meet weight gain needs. Patient triggers for severe PCM secondary to wt loss of 15# in 4 months secondary to CA with radiation treatment. Based on po intake supplements would be beneficial started glucerna with trays. Will also interview for food preferences. His diabetes is controlled with A1c of 7.2. Will review POC with provider, may benefit from liberalized diet, currently on cardiac Original Note: pt is on a calorie count. pt ate 100% oatmeal, andrea, and eggs and 25% of his toast
--- NOTE | 2023-01-11 10:13 | DIET.NUTRFU ---
Addendum entered by Kelly Junior RD, LD 01/11/23 11:03: Provider okay to discontinue calorie count. Patient possible discharge today and see cardiac as outpatient. Original Note: based on intake listed by nursing he consumed 408kcal and 24.5gm protein for breakfast. nutritional needs are 1800kcal and 85gm protein to meet weight gain needs. Patient triggers for severe PCM secondary to wt loss of 15# in 4 months secondary to CA with radiation treatment. Based on po intake supplements would be beneficial started glucerna with trays. Will also interview for food preferences. His diabetes is controlled with A1c of 7.2. Will review POC with provider, may benefit from liberalized diet, currently on cardiac. Interviewed with patient, he does like to add salt to certain foods at home. Changed diet to regular. He did agree to try chocolate glucerna with trays. He lives with who prepare breakfast and dinner and he has something small for lunch like [employer]oodles. He reports he is not motivated to make a big lunch, Rd suggested something with protein like a shake or sandwich. He was up walking with therapy, no mobility changes. His chemo and radiation tx was 1 year ago. Now had mets to adrenal gland, has followup later this month to review plan of tx. Denies any N/V, had loose stool 01/09 and typically has BM QOD without medication. Takes Metformin and insulin at home for DM. Will continue to follow po intake
--- NOTE | 2023-01-11 10:29 | EXP.CARD.CON ---
History of Present Illness History of Present Illness Consult date: 01/11/23 Requesting physician: David Rivera Consult reason: known to you Chief complaint: frequent falls Additional Medical History:: 1. Coronary artery disease A. Drug-eluting stent, approximately 2019, [facility] in [facility], Dr. Izaguirre 2. History of atrial fibrillation with CHADS-VASC of 4 A. NINFA/cardioversion, 11/25/2022 B. Amiodarone therapy with normal LFTs and TSH, 12/2022 C. EKG, 01/10/2023, sinus rhythm with LAD, RBBB 3. History of esophageal cancer s/p radiation/chemo therapy 4. History of lung cancer, status post chemo and radiation therapy A. Abdominal/pelvis CT, 01/10/2023, severe retroperitoneal lymphadenopathy, most likely metastatic with additional mild periportal, retrocrural and gastrohepatic ligament adenopathy, also likely metastatic. Considerable masslike enlargement of the left adrenal gland, most likely metastatic. Indeterminate 12 mm left hepatic hypodensity, likely metastatic. Cholelithiasis without acute cholecystitis. Severe prostatomegaly, bladder wall thickening from incomplete distention, chronic outlet obstruction or cystitis. Severe atherosclerotic vascular disease 5. Diabetes mellitus, treated for at least 10 years A. Hemoglobin A1c, 7.2 on 12/05/2022 6. Tobacco use, continued A. Chest CTA, 01/10/2023, no pulmonary emboli, severe coronary artery calcification, 2 cm airspace consolidation with infiltrating margins in the central right middle lobe may reflect primary patient's primary carcinoma, bilateral pulmonary nodules measuring up to 6 mm. Mild upper lobe predominant centrilobular emphysema and diffuse mild bronchial wall thickening/COPD 7. Hypertension A. Echo, 11/28/2022, EF 50-60% with no significant valve disease. 8. Hyperlipidemia A. LDL 97, 09/[address], 01/10/2023, obtained due to history of fall with head injury, no acute posttraumatic intracranial abnormality. Chronic mild diffuse cerebral atrophy consistent with patient's age. History of present illness: This is a 72-year-old male with past medical history of IDDM, hypertension, Heart failure, Afib, HLD, CAD status post stenting, lung/ esophageal cancer status post radiation therapy, tobacco abuser, right upper chest port placement, who presented emergency department for evaluation of weakness, dizziness and multiples falls at home. Patient stated that his weakness has been progressively increased to bilateral lower extremities however over the last day he has had multiple ground-level falls due to his legs giving out . When asked if it is because he has difficulty feeling his feet or if it is entire legs he states both my entire legs . Patient denies urinary or bowel incontinence. No other acute complaints at this time. admitted for further management. The above per Dr. Rivera. Cardiology consulted for evaluation of patient's complaint of leg weakness. He is already scheduled for an SOPHIE tomorrow as well as a stress test. Patient denies any chest pain at this time. He does have diminished pedal pulses on exam. EKG this admission shows sinus rhythm. Patient is on amiodarone therapy to maintain sinus rhythm. [facility] Disclaimer: The information contained in this section may have been updated after the patient was seen, as this information can be updated by other users. Medical History Atrial fibrillation Claudication COPD (chronic obstructive pulmonary disease) Decreased pedal pulses Diabetes mellitus, type 2 Dyspnea History of esophageal cancer History of heart attack History of left heart catheterization Hyperlipidemia Hypertension Lung cancer PAF (paroxysmal atrial fibrillation) Surgical History History of insertion of tunneled central venous catheter (CVC) with port Family History (Reviewed 01/04/23 @ 14:3
--- NOTE | 2023-01-11 10:32 | HMH.PTEV ---
Physical Therapy Evaluation Rehab PT IP Evaluation Start: 01/10/23 23:57 Freq: ONCE Status: Active Protocol: Document 01/11/23 10:24 RIC (Rec: 01/11/23 10:32 RIC [id number]) Subjective/History History History 72 yowm adm to [facility] with general weakness and several recent falls. Hx of IDDM, hypertension, Heart failure, Afib, HLD, CAD status post stenting, lung/ esophageal cancer status post radiation therapy. He reports he is generally independent with all mobility without AD and is independent with all ADLs. He lives with his spouse. Subjective Subjective No c/o this am, feels a little better overall. Rehab PT IP Eval Objective Appearance Patient Behavior Appropriate Patient Orientation Person,Place,Time Difficulty following instructions none Speech Pattern Clear Ambulation Patient Able to Ambulate Yes Ambulation Observation IP General Gait Pattern Observation No Deviations/Normal Ambulation Distance (feet) 30 Ambulation Assistive Device None Ambulation Ability Independent Balance Ability to Arise Able, uses arms to help Sitting Balance Steady, safe Standing Balance Steady, wide stance Dynamic Sitting Balance Ability Good Dynamic Standing Balance Ability Good Transfers Bed Transfer Ability Independent Chair Transfer Ability Independent Sit to Stand Bed Transfer Ability Independent Sit to Stand Chair Transfer Ability Independent ROM All Extremities PT ROM Status WFL MMT All Extremities PT MMT WFL Rehab PT IP prob,goals,plan Problems Date of Evaluation: 01/11/23 Discharge Plan PT Discharge Plan Pt is currently independent with all mobility and is appropriate to return home once medically stable for d/c. Recommend Home Health therapy as needed after d/c. G -code Required No Eval Complexity Eval Charge Codes 04910 - High Complexity PHYSICIAN CERTIFICATION: I certify the specified therapy services for [facility] A Case are required, authorized, and reviewed every 30 days.
[2023-01-11 11:34] LABS: POC Glucose,Bedside 107 (70-110)
--- NOTE | 2023-01-11 11:52 | NM_ITS ---
APPROVED REPORT Exam: Nuclear Stress Test Indication: h/o mi, htn, dm, hyperlipidemia, tob use, sob, atrialfib Patient Location: Outpatient Stress Tech: Harriet Walters [place] Tech:MISA Aparicio RT(R)(N) Ht: 5 ft 7 in Wt: 125 lbs HR: 57 bpm BP: 124/65 mmHg BSA: 1.66 m2 TID: 1.11 BMI: 19.5 History: h/o mi, htn, dm, hyperlipidemia, tob use, sob, atrial fibrillation Pt could not lay on stomach for prone images Procedure: Patient received 0.4 mg of intravenous Lexiscan, resting heart rate 57 bpm, resting blood pressure 124/65 mmHg, with Lexiscan maximum heart rate achieved was 70 bpm which is % of the maximum predicted heart rate and blood pressure was 124/65 mmHg. With Lexiscan, patient denied any complaint of chest pain. Cardiac Stress and Resting SPECT Images: Cardiac Stress and Resting SPECT images were obtained using technetium 99m Myoview 32.9 mCi stress and 10.54 mCi at rest. The patient could not lie on his abdomen. Therefore, prone stress imaging could not be performed. There is also significant radiotracer GI uptake in close proximity to the inferior LV wall. These findings may affect the diagnostic interpretation of the study findings. Resting and stress imaging in supine position demonstrate a medium-sized, moderate, fixed perfusion defect in the basal to mid inferior and inferoseptal LV pascual. Findings are possibly related to artifact, but true perfusion defect in that region cannot be entirely ruled out. Gated imaging demonstrates normal global and regional LV systolic function. LVEF is calculated at 60%. Conclusion: The patient could not lie on his abdomen. Therefore, prone stress imaging could not be performed. There is also significant radiotracer GI uptake in close proximity to the inferior LV wall. These findings may affect the diagnostic interpretation of the study findings. Resting and stress imaging in supine position demonstrate a medium-sized, moderate, fixed perfusion defect in the basal to mid inferior and inferoseptal LV pascual. Findings are possibly related to artifact, but true perfusion defect in that region cannot be entirely ruled out. Gated imaging demonstrates normal global and regional LV systolic function. LVEF is calculated at 60%. Electronically signed by : Ana Sandoval, 01/16/2023 17:01:04
--- NOTE | 2023-01-11 12:57 | HMH.OTEV ---
OT Inpatient Evaluation Rehab OT IP Evaluation Start: 01/10/23 23:57 Freq: ONCE Status: Active Protocol: Document 01/11/23 12:54 REYNA (Rec: 01/11/23 12:57 REYNA [id number]) Rehab OT IP Assessment Subjective History 72 yowm adm to [facility] with general weakness and several recent falls. Hx of IDDM, hypertension, Heart failure, Afib, HLD, CAD status post stenting, lung/ esophageal cancer status post radiation therapy. He reports he is generally independent with all mobility without AD and is independent with all ADLs. He lives with his spouse. Subjective I can get up. Assessed Patient's functional mobility of transfers, bed mobility, d/d LB drsg and mobility within room with no AE/devices. Patient completed all tasks independently. Objective Patient Orientation Person,Place,Name,Age,Year Upper Extremity Gross ROM WFL Bed Mobility bed mobility - supine/sit Assist Level Independent Transfer Training Sit/Stand/Pivot Transfer Assist Level Independent Chair Transfer Ability Independent Chair Transfer Technique Sit to/from Ambulatory Chair Transfer Assistive Devices Rolling Walker Lower Body Dressing Ability Independent Rehab OT IP prob,goals,plan Problems Date of Evaluation: 01/11/23 OT IP Problems Bed Mobility,Transfers,Balance ,Self care,Safety Rehab Potential Rehab Potential Innapropriate for Skilled Therapy Discharge Plan OT Discharge Plan Patient is independent with all ADLs and fx'l mobility this date. Recommend Patient to return home and recieve services as needed. Eval Complexity Eval Charge Codes 74160 - Low Complexity G Codes G -code Required No PHYSICIAN CERTIFICATION: I certify the specified therapy services for Emerson A Case are required, authorized, and reviewed every 30 days.
--- NOTE | 2023-01-11 13:46 | CA_ITS ---
APPROVED REPORT Exam: Pharmacologic Technologist: Harriet Jane, Ht: 5 ft 7 in Wt: 149 lbs BSA: 1.78 m2 HR: 57 bpm BP: 124/65 mmHg Rhythm: NSR Medical History Medications: Lisinopril,,,,, Omeprazole,,,,, Amiodarone,,,,, Metformin,,,,, Vitamin D3,,,,, XaRELTO,,,,, Lipitor,,,,, Digoxin,,,,, BisOPROLOL Fumarate,,,,, LanTUS,,,,, JaRDiance,,,,, Magnesium OXIDE,,,,, Stress Test Details Test: LEXISCAN Reason for pharmacologic stress test: physical limitation. HR Resting HR: 57 bpm Max Heart Rate (APMHR): 149 bpm Max HR Achieved: 70 bpm Target HR (85% APMHR): 127 bpm % of APMHR: 47 Recovery HR: 58 bpm BP Resting BP: 124.0/65.0 mmHg Max BP: 124.0/65.0 mmHg Recovery BP: 106.0/54.0 mmHg ECG Resting ECG: Sinus philip, RBBB Stress ECG: No ST changes Arrhythmia: None Clinical Exercise duration: 4:00 min Highest Stage Achieved: Stress ECG Conclusion Symptoms: Mild head discomfort. No CP. Arrhythmias/Ectopy: None ST-T Changes: No significant ST changes. Conclusion: Unremarkable Lexiscan stress test. Myoview images reported separately. Test Summary REST 04:18 . . 57 . 124/ 65 . . Stage 1 00:06 . . 57 . . . Stop exercise at 00:06 RECOVERY 01:00 . . 58 . . . . RECOVERY 02:00 . . 59 . . . . RECOVERY 03:00 . . 59 . 95/ 47 . . RECOVERY 04:00 . . 58 . 95/ 47 . . RECOVERY 05:00 . . 58 . 98/ 51 . . RECOVERY 06:00 . . 60 . 98/ 51 . . RECOVERY 07:00 . . 58 . 100/ 52 . . RECOVERY 07:49 . . 58 . 106/ 54 . . Electronically signed by : Ana Sandoval, 01/16/2023 16:56:26
[2023-01-11 17:04] LABS: POC Glucose,Bedside 83 (70-110)
--- NOTE | 2023-01-11 17:23 | PC.NURSE ---
A&OX4. TOLERATING RA WELL AT THIS TIME, O2 SAT 98%. PT HAS DONE WELL STANDING AND WALKING SOME IN ROOM, BUT HAS A FEAR THAT HIS LEGS WILL GIVE OUT AT ANY TIME. HAD STRESS TEST COMPLETED TODAY. NEW DRESSING APPLIED TO SKIN TEAR TO L ELBOW. CDI. PT HAS HAD NO NEEDS OR C/O THUS FAR. VSS.
[2023-01-11 21:30] LABS: POC Glucose,Bedside 181 (70-110)
[2023-01-12] VITALS (7 sets, daily range): BP systolic 100–112; BP diastolic 46–71; PULSE 60–75; RESP 18; TEMP 36.7–37.1; O2SAT 89–95; BMI 23.9
--- NOTE | 2023-01-12 05:21 | PC.NURSE ---
Patient has slept most of the night. Has not complained of pain. No issues overnight
[2023-01-12 06:04] LABS: POC Glucose,Bedside 82 (70-110)
--- NOTE | 2023-01-12 10:28 | SW/DCPLANNER ---
Addendum entered by Yolie Swartz 01/12/23 14:51: Derrick w/ [facility] will start for this patient tomorrow 01/13/23. Addendum entered by Yolie Swartz 01/12/23 14:13: Patient information/order has been faxed to [facility]. Original Note: I spoke with this patient regarding plans once medically stable for discharge. PT/OT evaluated patient and recommended discharging home w/ home health services. I spoke with patient this AM regarding home health: patient is agreeable and prefers to use [facility] due to residing in [facility]. Patient information/order will be faxed to [facility] at time of discharge. I will follow up w/ [facility] to make sure his insurance has a home health policy. Patient will discharge home later today pending no setbacks. I will continue to follow up w/ MD brady and [facility].
--- NOTE | 2023-01-12 11:01 | EXP.CARD.PN ---
Subjective Subjective Date: 01/12/23 Time: 11:01 Principal diagnosis: weakness Interval history: 72-year-old white male in bed in no acute distress. Still complains of some weakness. Results of stress test from yesterday shows a fixed inferior wall defect with no evidence of reversibility. Ejection fraction is preserved at 60%. Patient does have a history of prior coronary stenting at [facility] in [facility]. Those records are unavailable at this time as to the coronary location of the coronary stent. Exam Data for Last 24 hours Vital signs and Labs for Last 24 Hours: Temp Pulse Resp BP Pulse Ox O2 Del Method O2 Flow Rate 98.1 F 75 18 108/71 L 92 L Room Air 2 01/12/23 08:00 01/12/23 08:00 01/12/23 08:00 01/12/23 08:00 01/12/23 08:00 01/12/23 08:33 01/11/23 12:00 FiO2 28 01/11/23 00:21 Laboratory Results - last 24 hr 01/11/23 11:23: POC Glucose 107 01/11/23 16:49: POC Glucose 83 01/11/23 20:22: POC Glucose 181 H 01/12/23 05:43: POC Glucose 82 I & O for Last 24 hours: Intake & Output 01/09/23 01/10/23 01/11/23 01/12/23 11:59 11:59 11:59 11:59 Intake Total 540 / 540 1680 / 1680 Output Total 200 / 350 1050 / 1050 Balance 340 / 190 630 / 630 Weight 144 lb 7.855 oz 152 lb 9 oz Constitutional Constitutional: no acute distress *Routine Respiratory Exam Respiratory: Present CTA bilaterally *Routine Cardiovascular Exam Cardiovascular: Present RRR Progress Note: A&P Assessment and plan (1) Generalized weakness: Status: Acute (2) Multiple falls: Status: Acute (3) Chronic hyponatremia: Status: Acute (4) Bilateral leg weakness: Status: Acute (5) Neoplasm of lung, malignant: Status: Acute (6) Metastatic disease: Status: Acute (7) Atrial fibrillation: Status: Acute (8) Heart failure with reduced ejection fraction: Status: Acute (9) Diabetes: Status: Acute (10) CAD (coronary atherosclerotic disease): Status: Acute (11) Hyperlipidemia: Status: Acute (12) Hypertension: Status: Acute (13) Tobacco abuse: Status: Acute (14) Severe protein-calorie malnutrition: Status: Acute Assessment and Plan Assessment and Plan for All Diagnoses:: 1. Weakness with bilateral lower extremity weakness likely related to decreased appetite and caloric intake SOPHIE preliminary results show right at 0.62 and left at 0.82. In setting of metastatic cancer without limb threatening ischemia, would recommend outpatient CTA runoff of LE's. 2. Coronary artery disease with prior stenting to OM in 04/2020. Remaining disease relegated to medical therapy (50% mid LAD and 30% prox RCA). Clinically stable Stress test shows preserved EF with fixed inferior defect. No ischemia. 3. History of paroxysmal atrial fibrillation currently sinus rhythm on amiodarone therapy 4. Diabetes mellitus, per PCP 5. Metastatic cancer with history of esophageal and lung cancer status post chemo and radiation therapy. Followed by oncology in [facility] 6. Hypertension, controlled but with orthostatic drop. Reduce bisoprolol to 2.5 mg daily (would like to continue it to help maintain NSR but if BP continues to drop then may need to stop it). 7. Hyperlipidemia, on statin therapy -LDL 97, 09/2022 Clinically stable from a cardiac standpoint for discharge home. Home medication recommendations: Amiodarone 200 mg daily Aspirin 81 mg daily Lipitor 20 mg daily Bisoprolol reduced to 2.5 mg daily Digoxin 125 mcg daily Jardiance 10 mg daily Spironolactone 25 mg daily Xarelto 20 mg daily Follow-up in our office in 1 to 2 weeks at which time we will proceed with CTA of the lower extremities if not performed in the interim.
[2023-01-12 11:09] LABS: POC Glucose,Bedside 181 (70-110)
--- NOTE | 2023-01-12 12:50 | PC.NURSE ---
Rounded on patient. He ambulated to the bathroom with assist from myself. He stated that he wanted to go for a walk after lunch. Aries Bañuelos SRNA notified of patients request. He denies any other questions or concerns at this time. Bed is locked and in the lowest position, call light is within reach.
--- NOTE | 2023-01-12 14:04 | EXP.DC.SUM ---
General Admission date:: 01/10/23 Discharge date: 01/12/23 HPI HPI HPI: Forwarded from Admission H&P: This is a 72-year-old male with past medical history of IDDM, hypertension, Heart failure, Afib, HLD, CAD status post stenting, lung/ esophageal cancer status post radiation therapy, tobacco abuser, right upper chest port placement, who presented emergency department for evaluation of weakness, dizziness and multiples falls at home. Patient stated that his weakness has been progressively increased to bilateral lower extremities however over the last day he has had multiple ground-level falls due to his legs giving out . When asked if it is because he has difficulty feeling his feet or if it is entire legs he states both my entire legs . Patient denies urinary or bowel incontinence. No other acute complaints at this time. admitted for further management. Hospital Course Hospital Course Hospital Course: The patient was given IV fluids and was monitored with telemetry. Hospital course was prolonged because complaints of intermittent lightheadedness which nearly resolved by the day of admission. PT/OT worked with the patient and recommended home with home health services. He will need services for PT/OT and mcfp and will need to follow up with his PCP in 1 week. Exam Data for Last 24 hours Vital signs and Labs for Last 24 Hours: Temp Pulse Resp BP Pulse Ox O2 Del Method O2 Flow Rate 98.1 F 70 18 100/46 L 92 L Room Air 2 01/12/23 11:56 01/12/23 12:00 01/12/23 11:56 01/12/23 11:56 01/12/23 11:56 01/12/23 12:31 01/11/23 12:00 FiO2 28 01/11/23 00:21 Laboratory Results - last 24 hr 01/11/23 16:49: POC Glucose 83 01/11/23 20:22: POC Glucose 181 H 01/12/23 05:43: POC Glucose 82 01/12/23 10:58: POC Glucose 181 H I & O for Last 24 hours: Intake & Output 01/09/23 01/10/23 01/11/23 01/12/23 23:59 23:59 23:59 23:59 Intake Total 1080 / 1680 1410 / 1410 Output Total 700 / 700 1050 / 1050 Balance 380 / 980 360 / 360 Weight 64.41 kg 56.926 kg 69.201 kg Results Data Completed and Pending Completed studies during hospitalization [Text1]: Chest CTA 01/10/23: IMPRESSION: 1. No acute pulmonary emboli. 2. Severely atherosclerotic thoracic aorta without aneurysm or dissection. 3. 2 cm airspace consolidation with infiltrating margins in the central right middle lobe may reflect the patient's primary carcinoma. Please correlate with prior imaging if available. 4. Contiguous right hilar soft tissue fullness without measurable adenopathy. 5. Bilateral pulmonary nodules measuring up to 6 mm. Fleischner Society follow up recommendations for incidental nodules are not indicated. Follow up per the patient's medical condition. 6. Underlying mild upper lobe predominant centrilobular emphysema and diffuse mild bronchial wall thickening/COPD. 7. Severe coronary artery calcifications. 8. Remote calcified granulomatous disease. 9. Nonspecific distal esophageal wall thickening. Lexiscan Stress Test 01/11/23: Conclusion: The patient could not lie on his abdomen. Therefore, prone stress imaging could not be performed. There is also significant radiotracer GI uptake in close proximity to the inferior LV wall. These findings may affect the diagnostic interpretation of the study findings. Resting and stress imaging in supine position demonstrate a medium-sized, moderate, fixed perfusion defect in the basal to mid inferior and inferoseptal LV pascual. Findings are possibly related to artifact, but true perfusion defect in that region cannot be entirely ruled out. Gated imaging demonstrates normal global and regional LV systolic function. LVEF is calculated at 60%. Pending studies at discharge: Extremity arterial study Labs on day of discharge: Labs from last 24 hours 01/12/23 01/12/23 01/11/23 10:58 05:43 20:22 POC Glucose 181 H 82 181 H 0
--- NOTE | 2023-01-12 14:31 | PC.NURSE ---
Courtesy Round Rounded on patient . Patient awake and sitting up on side of bed. Urinal emptied at this time and charted.Trash and linens emptied .
--- NOTE | 2023-01-13 13:25 | CARE MANAGER ---
Contacted patient related to hospital discharge. He states he is feeling better. He is aware of his folow up appointments an dhad no new medications. Denies questions or concerns. MITRA Khan
== END 2023-01-12 15:28 | disposition home health service (06) ==
LOC: ER 18:18 → 2ND 22:16
PROVIDERS: Nurse Practitioner Family; Admitting Provider Internal Medicine; Emergency Provider Emergency Medicine; PCP Family Medicine; Visit Provider Internal Medicine
DX: R29.898 Other symptoms and signs involving the musculoskeletal system (principal); I10 Essential (primary) hypertension; E78.5 Hyperlipidemia, unspecified; I25.10 Atherosclerotic heart disease of native coronary artery without angina pectoris; Z95.5 Presence of coronary angioplasty implant and graft; Z79.4 Long term (current) use of insulin; Z85.01 Personal history of malignant neoplasm of esophagus; E11.51 Type 2 diabetes mellitus with diabetic peripheral angiopathy without gangrene; I48.0 Paroxysmal atrial fibrillation; C77.1 Secondary and unspecified malignant neoplasm of intrathoracic lymph nodes; E87.1 Hypo-osmolality and hyponatremia; C34.90 Malignant neoplasm of unspecified part of unspecified bronchus or lung; R29.6 Repeated falls
CPT/HCPCS: 36415; 70450; 71045; 71275; 72128; 72131; 73090; 73110; 74177; 78452; 80053; 82962; 83735; 84484; 85025; 93005; 93017; 94640; 94760; 97163; 97165; 99285; A9502; G0378; J1642; J2785; Q9967

== ENCOUNTER 2023-02-03 11:55 | Outpatient (CLI) | payer OTHER, BC, SELFPAY ==
--- NOTE | 2023-02-03 11:55 | CT_ITS ---
FINAL REPORT CLINICAL HISTORY: abnoraml SOPHIE FINDINGS: Post contrast axial imaging of the aorta and bilateral lower extremity was obtained and reviewed. This study was performed with techniques to keep radiation doses as low as reasonably achievable (ALARA). Individualized dose reduction techniques using automated exposure control or adjustment of mA and/or kV according to the patient's size were employed. The lung bases are clear. The liver parenchyma is homogeneous. The gallbladder is present. The spleen and pancreas are unremarkable. There is a large, lobular, heterogeneous left adrenal mass measuring 4.1 x 3.0 cm. There is also extensive retrocrural and retroperitoneal adenopathy. Lymph nodes measure up to 3.6 cm in greatest dimension. A large amount of retained stool is seen in the colon. There is mild vascular calcification of the abdominal aorta and iliac vessels. There is no evidence of aortic stenosis. The celiac axis and superior mesenteric artery are patent. The renal arteries are patent bilaterally. There is moderate calcification of the external iliac artery bilaterally with less than 50% stenosis. Right: There are moderate vascular calcifications scattered throughout the right lower extremity with approximately 80% stenosis in the right abductor canal. The popliteal artery is patent. There is poor contrast delivery to the tibial vessels. Left: There is scattered calcifications throughout the SFA. Stenoses measure up to 50%. The popliteal artery is patent. There is poor contrast delivery into the tibial vessels. IMPRESSION: 80% right and 50% left adductor canal stenosis. Left adrenal mass and extensive retrocrural and retroperitoneal adenopathy is highly concerning for malignancy. Please correlate with any known history of malignancy. PET/CT may be of value to guide biopsy. Reviewed, Interpreted and Dictated by Thomas Jensen MD Transcribed by Keiry Matthew Authenticated and [facility]
== END 2023-02-03 13:15 | disposition home or self-care (01) ==
PROVIDERS: PCP Family Medicine; Visit Provider Physician Assistant
DX: R09.89 Other specified symptoms and signs involving the circulatory and respiratory systems (principal); R20.9 Unspecified disturbances of skin sensation; I73.9 Peripheral vascular disease, unspecified; R68.89 Other general symptoms and signs
CPT/HCPCS: 75635; 96523; J1642; Q9967

== ENCOUNTER 2023-02-15 07:20 | Day surgery (SDC) | payer BC, SELFPAY ==
[2023-02-15] VITALS (11 sets, daily range): BP systolic 113–168; BP diastolic 61–102; PULSE 61–72; RESP 16–20; TEMP 36.9; O2SAT 90–99; BMI 22.8
--- NOTE | 2023-02-15 07:06 | IR_ITS ---
APPROVED REPORT Patient Location: Outpatient Electrical Tryout Person: MISA Staples RT (R) PROCEDURES Left femoral arterial access Left retrograde femoral angiogram Catheter placement in the abdominal aorta Abdominal aortography Repositioning of the catheter in the abdominal aorta Bilateral iliofemoral runoff Bare-metal stent deployment to the right external iliac artery INDICATION Arboles claudication class III, Abnormal SOPHIE, Subtotal occlusion of the right external iliac artery Informed consent was obtained prior to the procedure. COMPLICATIONS None Estimated Blood Loss: Less than 10 ML TECHNIQUE 1% lidocaine used anesthetize left groin the left femoral artery was accessed via the Salinger technique and a 5 Niuean sheath was placed in the left femoral artery. Retrograde angiography was performed due to inability to easily pass the wire through the iliofemoral artery. The pigtail catheter was advanced to the abdominal aorta and abdominal aortography was performed. The catheter was repositioned and bilateral iliofemoral foot was performed. Following this a rim catheter was advanced into the distal abdominal aorta and used to cannulate the right common iliac artery. Therapeutic heparin was administered giving a therapeutic ACT and an advantage wire was advanced through the subtotal occlusion of the right external iliac artery. This allowed removal of the 5 Niuean rim catheter and 5 Niuean sheath and advancement of a 6 Niuean destination sheath. An 8 mm x 37 mm VISI Pro stent was deployed at 10 arielle reducing the stenosis to 0%. Excellent angiographic results were obtained. At the end the procedure the apparatus was removed the groin is reprepped closure change sheath was removed and hemostasis was achieved using Perclose device patient was transferred to the postop holding in stable condition ANGIOGRAPHIC RESULTS Distal abdominal aorta is atheromatous with no focal stenosis greater than 20% Bilateral common iliac arteries have 10 to 20% stenoses Bilateral internal iliac arteries are patent Right external iliac artery has a calcified greater than 90% subtotal occlusion Left external iliac artery has a 30 to 40% stenosis Bilateral common femoral arteries are mildly atheromatous Right superficial femoral artery is diffusely moderate to severely atheromatous however it is patent. At adductor's canal there is a concentric 70 to 80% stenosis. The remaining popliteal artery is widely patent and gives rise to the anterior posterior tibialis artery and the peroneal artery. There appears to be patency of these vessels at least to mid calf. Left superficial femoral artery is diffusely moderately atheromatous with multiple 40 to 50% stenoses. The left popliteal artery is patent and there appears to be three-vessel runoff below the knee on the left side IMPRESSION Atheromatous disease as described above Severe to critical disease in the right external iliac artery with successful stenting reducing the subtotal occlusion to 0% with 1 bare-metal balloon mounted stent Persistent severe stenosis in the right popliteal artery at [facility] Bilateral three-vessel runoff as described above PLAN 1. Avoidance of tobacco products 2. Dual antiplatelet therapy for 1 month 3. Consider Xarelto 2.5 twice daily plus aspirin 81 mg daily 4. LDL less than 55 to be achieved with high intensity statin 5. This point the left leg does not have lesions which are ideal for percutaneous revascularization nor they clinically indicated at this time. If the patient continues with recalcitrant claudication he can be brought back and undergo right SFA/popliteal artery drug-coated balloon angioplasty 6. Evaluation for ischemic heart disease Electronically signed by : Denis Cooper
[2023-02-15 08:04] LABS: Basophils % 0.5 % (0.1-2.0); Eosinophils # 0.2 K/mm3 (0.0-0.4); Eosinophils % 2.3 % (0.1-12.0); Hematocrit 38.8 % (42.0-52.0); Hemoglobin 12.6 g/dL (14.1-18.0); Lymphocytes % 11.7 % (10-50); Mean Corpuscular HGB Conc 32.3 g/dL (31.8-35.4); Mean Corpuscular Hemoglobin 29.9 pg (27.0-31.2); Mean Corpuscular Volume 92.4 fl (80-94); Mean Platelet Volume 9.1 fl (7.4-10.4); Monocytes # 0.8 K/mm3 (0.1-1.0); Monocytes % 9.6 % (1.7-9.3); Neutrophils # 6.6 K/mm3 (1.8-7.8); Platelet Count 254 K/mm3 (142-424); Red Cell Distribution Width 16.8 % (11.5-17.5); White Blood Count 8.7 K/mm3 (4.8-10.8)
[2023-02-15 08:13] LABS: Chloride 99 mmol/L (98-107); Potassium 4.2 mmoL/L (3.5-5.1); Sodium 132 mmol/L (136-145)
[2023-02-15 08:16] LABS: Anion Gap 9.2 mEq/L (5-15); Blood Urea Nitrogen 22 mg/dl (9-20); Calcium 10.4 mg/dl (8.4-10.2); Carbon Dioxide 28 mmol/L (22.0-30.0); Creatinine Clearance Estimated 62 mL/min (50-200); Estimated Glomerular Filt Rate 111 ml/min (>60); GFR (African American) 135 ML/MIN (>60); Glucose 134 mg/dl (74-100)
[2023-02-15 12:56] LABS: CATHL Activated Clotting Time 316 SEC (74-125)
--- NOTE | 2023-02-15 14:09 | P.CONPHA_ITS ---
PHA Feather Cutting Machine Feeder Discharge Med Appliance Servicer: Emerson Kraft has received discharge medication counseling on the following medications: CLOPIDOGREL [address] 81 MG DAILY ATORVASTATIN 20 MG DAILY BISOPROLOL 5 MG DAILY PERIPHERAL STENT.
== END 2023-02-15 14:23 | disposition home or self-care (01) ==
PROVIDERS: PCP Family Medicine; Visit Provider Internal Medicine
DX: E11.9 Type 2 diabetes mellitus without complications (principal); E78.5 Hyperlipidemia, unspecified; I10 Essential (primary) hypertension; I77.1 Stricture of artery; I48.0 Paroxysmal atrial fibrillation; Z79.01 Long term (current) use of anticoagulants; Z79.4 Long term (current) use of insulin; Z79.899 Other long term (current) drug therapy; I70.213 Atherosclerosis of native arteries of extremities with intermittent claudication, bilateral legs; F17.210 Nicotine dependence, cigarettes, uncomplicated
CPT/HCPCS: 37221; 80048; 85025; 85347; 99152; 99153; C1725; C1760; C1766; C1769; C1876; C1894; J1642; J1644; Q9966

== ENCOUNTER → 2023-03-06 10:06 | Outpatient (CLI) | payer BC, SELFPAY ==
--- NOTE | 2023-03-06 10:23 | CA_ITS ---
FINAL REPORT TECHNIQUE: Graded compression, spectral analysis and ultrasound images of the venous system of the upper extremity were obtained. CLINICAL HISTORY: swelling in Left arm x 3 months,pt on plavix and xarelto FINDINGS: The jugular vein, subclavian vein, axillary vein, brachial vein, cephalic vein and basilic venous system are fully compressible and demonstrate no evidence of thrombosis. IMPRESSION: No evidence of thrombosis of the venous system of the left upper extremity. Reviewed, Interpreted and Dictated by Chris Wilcox III, MD Transcribed by Midlred Prather Authenticated and [facility]
== END ==
PROVIDERS: PCP Family Medicine; Visit Provider Internal Medicine
DX: M79.89 Other specified soft tissue disorders (principal); R09.89 Other specified symptoms and signs involving the circulatory and respiratory systems; R68.89 Other general symptoms and signs
CPT/HCPCS: 93971